=== PATIENT | male | born 1990 | race African-American/Black ===

== ENCOUNTER 2016-11-08 19:14 | Inpatient (IN) | payer OTHER ==
[2016-11-08 20:10] VITALS: BMI 22.3
--- NOTE | 2016-11-08 21:08 | HP ---
CIWA Score - CIWA Score Nausea/Vomitin-No Nausea/No Vomiting Muscle Tremors: 4-Moderate,w/Arms Extend Anxiety: 4-Mod. Anxious/Guarded Agitation: 4-Moderately Restless Paroxysmal Sweats: 1-Minimal Palms Moist Orientation: 0-Oriented Tacttile Disturbances: 0-None Auditory Disturbances: 0-None Visual Disturbances: 0-None Headache: 2-Mild CIWA-Ar Total Score: 15 Admission ROS BHS - HPI Chief Complaint: C/O WITHDRAWAL SX'S. SEEKING DETOX TXMENT Allergies/Adverse Reactions: Allergies Allergy/AdvReac Type Severity Reaction Status Date / Time No Known Allergies Allergy Verified 11/08/16 21:02 History of Present Illness: 26 Y.O. MALE WITH ALCOHOLISM AND BENZO DEPENDENCE ADMITTED TO DETOX. THIS IS CLIENT FIRST TIME IN DETOX UTOX NEGATIVE FOR BENZO ( XANAX). WILL ADMIT FOR ALCOHOLISM. Exam Limitations: No Limitations - Ebola screening Have you traveled outside of the country in the last 21 days: No (N) Have you had contact with anyone from an Ebola affected area: No Have you been sick,other than usual withdrawal symptoms: No Do you have a fever: No - Review of Systems Constitutional: Chills, Loss of Appetite, Night Sweats, Changes in sleep EENT: reports: No Symptoms Reported Respiratory: reports: No Symptoms reported Cardiac: reports: No Symptoms Reported GI: reports: Poor Appetite : reports: No Symptoms Reported Musculoskeletal: reports: Muscle Pain (SHOULDERS) Integumentary: reports: No Symptoms Reported Neuro: reports: No Symptoms reported Endocrine: reports: No Symptoms Reported Hematology: reports: No Symptoms Reported Psychiatric: reports: Anxious, Depressed, other Other Systems: Reviewed and Negative Patient History - Patient Medical History Hx Anemia: No Hx Asthma: No Hx Chronic Obstructive Pulmonary Disease (COPD): No Hx Cancer: No Hx Cardiac Disorders: No Hx Congestive Heart Failure: No Hx Hypertension: No Hx Hypercholesterolemia: Yes (NO MGMT) Hx Pacemaker: No HX Cerebrovascular Accident: No Hx Seizures: No Hx Dementia: No Hx Diabetes: No Hx Gastrointestinal Disorders: No Hx Liver Disease: No Hx Genitourinary Disorders: No Hx Sexually Transmitted Disorders: No Hx Renal Disease (ESRD): No Hx Thyroid Disease: No Hx Human Immunodeficiency Virus (HIV): No Hx Hepatitis C: No Hx Depression: Yes (NO MGMT) Hx Suicide Attempt: No Hx Bipolar Disorder: No Hx Schizophrenia: No Other Medical History: SCHIZOAFFECTIVE - Patient Surgical History Past Surgical History: No - PPD History Previous Implant?: Yes Documented Results: Negative w/o proof Implanted On Prior [facility] Admission?: No PPD to be Administered?: Yes - Smoking Cessation Smoking history: Current every day smoker Have you smoked in the past 12 months: Yes Aproximately how many cigarettes per day: 7 Cigars Per Day: 0 Hx Chewing Tobacco Use: No Initiated information on smoking cessation: Yes 'Breaking Loose' booklet given: 11/08/16 - Substance & Tx. History Hx Alcohol Use: Yes Hx Substance Use: Yes Substance Use Type: Tranquilizers (XANAX) Hx Substance Use Treatment: No - Substances Abused BEER Route: Oral Frequency: 3-6 times per week Amount used: 7- 24 OZ Age of first use: 17 Date of Last Use: 11/08/16 XANAX Frequency: 3-6 times per week Amount used: 6MG Age of first use: 20 Date of Last Use: 11/01/16 Family Disease History - Family Disease History Family History: Denies Admission Physical Exam [facility] - Vital Signs Vital Signs: Vital Signs - 24 hr 11/08/16 20:07 Temperature 96.3 F L Pulse Rate 79 Respiratory 18 Rate Blood Pressure 145/79 - Physical General Appearance: Yes: Appropriately Dressed, Tremorous, Anxious HEENTM: Yes: EOMI, Normocephalic, Normal Voice, ZAHIRA, Pharynx Normal Respiratory: Yes: Chest Non-Tender, Lungs Clear, Normal Breath Sounds, No Respiratory Distress, No Accessory Muscle Use Neck: Yes: No masses,lesions,Nodules, Supple, Trachea in good position Breast: Yes: Breast Exam Deferred Cardiology: Yes: Regular Rhythm, Regular Rate, S1, S2 Abdominal: Yes: Normal Bowel Sounds, Non Tender, Soft Genitourinary: Yes: Within Normal Limits Back: Yes: Normal Inspection Musculoskeletal: Yes: full range of Motion, Gait Steady Extremities: Yes: Normal Range of Motion, Non-Tender, Tremors Neurological: Yes: Fully Oriented, Alert, Motor Strength 5/5 Integumentary: Yes: Normal Color, Warm, Moist Lymphatic: Yes: Within Normal Limits - Diagnostic (1) Alcohol dependence with uncomplicated withdrawal Current Visit: Yes Status: Chronic (2) Nicotine dependence Current Visit: Yes Status: Chronic Qualifiers: Nicotine product type: cigarettes Substance use status: uncomplicated Qualified Code(s): F17.210 - Nicotine dependence, cigarettes, uncomplicated Cleared for Admission [facility] - Detox or Rehab [facility] Level of Care: Medically Managed Detox Regimen/Protocol: Librium [facility] Breath Alcohol Content Breath Alcohol Content: 0.026 Urine Drug Screen - Results Drug Screen Negative: Yes
[2016-11-08] MEDS ORDERED: MAGNESIUM HYDROX 2400MG/30ML ORAL SUSPENSION 30 ML CUP PO PRN (21:22)
[2016-11-08] MEDS ORDERED: MENTHOL/PHENOL 1 EACH UD MM PRN (21:22)
[2016-11-08] MEDS ORDERED: guaiFENesin/D-METHORPHAN HB 10 ML UNIT-DOSE CUPS PO PRN (21:22)
[2016-11-08] MEDS ORDERED: MAGNESIUM CITRATE 300 ML BOTTLE PO PRN (21:22)
[2016-11-08] MEDS ORDERED: LOPERAMIDE HCL 2 MG CAPSULE PO PRN (21:22)
[2016-11-08] MEDS ORDERED: chlordiazePOXIDE HCL 25 MG CAPSULE PO PRN (21:22)
[2016-11-08] MEDS ORDERED: hydrOXYzine PAMOATE 50 MG CAPSULE (FP) PO PRN (21:22)
[2016-11-08] MEDS ORDERED: NICOTINE POLACRILEX 2 MG GUM BC PRN (21:22)
[2016-11-08] MEDS ORDERED: P-EPHED 60MG/TRIPROLIDI 2.5MG TABLET PO PRN (21:22)
[2016-11-08] MEDS: chlordiazePOXIDE HCL 25 MG CAPSULE PO SCH (22:37)
[2016-11-08] MEDS: THIAMINE HCL 100 MG TABLET (FP) PO SCH (22:37)
[2016-11-08] MEDS: NICOTINE 14 MG/24 HOURS TOPICAL PATCH TD SCH (22:37)
[2016-11-08] MEDS: diphenhydrAMINE HCL 50 MG CAPSULE PO PRN (22:38)
[2016-11-09] MEDS: chlordiazePOXIDE HCL 25 MG CAPSULE PO SCH ×4 (05:59→22:41)
[2016-11-09] MEDS: ACETAMINOPHEN 325 MG TABLET (FP) PO PRN (06:00)
[2016-11-09 10:16] LABS: MCHC 33.9 g/dl (32.0-35.9); MEAN CELL VOLUME 94.5 fl (80-96); MEAN PLT VOLUME 7.6 fl (7.5-11.1); PLATELET COUNT 250 K/MM3 (134-434); RDW 12.3 % (11.9-15.9); WHITE BLOOD COUNT 5.9 K/mm3 (4.0-10.0)
[2016-11-09] MEDS: NICOTINE 14 MG/24 HOURS TOPICAL PATCH TD SCH (10:26)
[2016-11-09] MEDS: PRENATAL VITAMINS W/ FOLIC ACID TABLET (FP) PO SCH (10:26)
[2016-11-09 10:32] LABS: ALBUMIN 4.2 g/dl (3.4-5.0); ALK PHOS 62 U/L (45-117); ANION GAP 10 (8-16); BILIRUBIN,TOTAL 0.7 mg/dL (0.2-1.0); CALCIUM 9.5 mg/dL (8.5-10.1); CO2 28 mmol/L (21-32); GLUCOSE,RANDOM 81 mg/dL (74-106); SGOT/AST 20 U/L (15-37); SGPT/ALT 43 U/L (12-78)
--- NOTE | 2016-11-09 13:57 | PN ---
S CIWA - CIWA Score Nausea/Vomitin-Mild Nausea/No Vomiting Muscle Tremors: 4-Moderate,w/Arms Extend Anxiety: 4-Mod. Anxious/Guarded Agitation: 3 Paroxysmal Sweats: No Perspiration Orientation: 0-Oriented Tacttile Disturbances: 0-None Auditory Disturbances: 0-None Visual Disturbances: 0-None Headache: 3-Moderate CIWA-Ar Total Score: 15 BHS Progress Note (SOAP) Subjective: Anxiety, sweating, tremor, interrupted sleep Objective: 11/09/16 13:55 Last Vital Signs Temp Pulse Resp BP Pulse Ox 96.6 F L 65 18 110/68 11/09/16 09:20 11/09/16 09:20 11/09/16 09:20 11/09/16 09:20 Laboratory Tests 11/09/16 11/09/16 11/09/16 07:50 07:50 07:50 WBC 5.9 RBC 4.59 Hgb 14.7 Hct 43.4 MCV 94.5 MCHC 33.9 RDW 12.3 Plt Count 250 MPV 7.6 Sodium 142 Potassium 4.0 Chloride 104 Carbon Dioxide 28 Anion Gap 10 BUN 18 Creatinine 1.0 Creat Clearance w eGFR > 60 Random Glucose 81 Calcium 9.5 Total Bilirubin 0.7 AST 20 ALT 43 Alkaline Phosphatase 62 Total Protein 7.0 Albumin 4.2 RPR Titer Nonreactive Labs noted Assessment: 11/09/16 13:57 Withdrawal symptoms Plan: Continue detox
[2016-11-09] MEDS: IBUPROFEN 400 MG TABLET (FP) PO PRN (16:30)
[2016-11-09] MEDS: diphenhydrAMINE HCL 50 MG CAPSULE PO PRN (22:41)
[2016-11-09] MEDS: THIAMINE HCL 100 MG TABLET (FP) PO SCH (22:41)
[2016-11-10] MEDS: diphenhydrAMINE HCL 50 MG CAPSULE PO PRN ×3 (00:30→23:56)
[2016-11-10] MEDS: chlordiazePOXIDE HCL 25 MG CAPSULE PO SCH ×3 (06:05→17:38)
[2016-11-10] MEDS: MAG HYDROX/AL HYDROX/SIMETH 30 ML UNIT-DOSE CUP PO PRN (06:05)
--- NOTE | 2016-11-10 10:06 | PN ---
S CIWA - CIWA Score Nausea/Vomitin-No Nausea/No Vomiting Muscle Tremors: 4-Moderate,w/Arms Extend Anxiety: 3 Agitation: 3 Paroxysmal Sweats: 3 Orientation: 0-Oriented Tacttile Disturbances: 0-None Auditory Disturbances: 0-None Visual Disturbances: 0-None Headache: 0-None Present CIWA-Ar Total Score: 13 BHS Progress Note (SOAP) Subjective: Anxiety,tremors,interrupted sleep,restless,sweating Objective: 11/10/16 10:05 Vital Signs - 8 hr 11/10/16 11/10/16 11/10/16 03:25 06:19 10:03 Temperature 96.3 F L 96.4 F L Pulse Rate 56 L 66 Respiratory 18 16 18 Rate Blood Pressure 108/68 110/69 Laboratory Tests 11/09/16 11/09/16 11/09/16 07:50 07:50 07:50 WBC 5.9 RBC 4.59 Hgb 14.7 Hct 43.4 MCV 94.5 MCHC 33.9 RDW 12.3 Plt Count 250 MPV 7.6 Sodium 142 Potassium 4.0 Chloride 104 Carbon Dioxide 28 Anion Gap 10 BUN 18 Creatinine 1.0 Creat Clearance w eGFR > 60 Random Glucose 81 Calcium 9.5 Total Bilirubin 0.7 AST 20 ALT 43 Alkaline Phosphatase 62 Total Protein 7.0 Albumin 4.2 RPR Titer Nonreactive labs noted Assessment: 11/10/16 10:05 withdrawal sx. Plan: continue detox
[2016-11-10] MEDS: PRENATAL VITAMINS W/ FOLIC ACID TABLET (FP) PO SCH (10:25)
[2016-11-10] MEDS: NICOTINE 14 MG/24 HOURS TOPICAL PATCH TD SCH (10:26)
--- NOTE | 2016-11-10 12:11 | EKG ---
Test Reason : Blood Pressure : / mmHG Vent. Rate : 068 BPM Atrial Rate : 068 BPM P-R Int : 156 ms QRS Dur : 086 ms QT Int : 378 ms P-R-T Axes : 053 072 045 degrees QTc Int : 401 ms NORMAL SINUS RHYTHM NORMAL ECG WHEN COMPARED WITH ECG OF 08-NOV-2016 23:42, CRITERIA FOR SEPTAL INFARCT ARE NO LONGER PRESENT Confirmed by DARCY HERNANDEZ MD ([id number]) on 11/10/2016 12:10:44 PM Referred By: Confirmed By:DARCY HERNANDEZ MD
--- NOTE | 2016-11-10 14:33 | CONSULT ---
[facility] Psychiatric Consult - Data Date of interview: 11/10/16 Admission source: [facility] Identifying data: First admission to [facility] for this 26 y/o AA male seeking detox treatment on for alcohol and benzodiazepine (xanax) dependence.Patient is single without children,homeless,unemployed and he is reportedly deprived of any source of income. Substance Abuse History: - Smoking Cessation. Smoking history: Current every day smoker. Have you smoked in the past 12 months: Yes. Aproximately how many cigarettes per day: 7. Cigars Per Day: 0. Hx Chewing Tobacco Use: No. Initiated information on smoking cessation: Yes. 'Breaking Loose' booklet given : 11/08/16. - Substance & Tx. History. Hx Alcohol Use: Yes. Hx Substance Use : Yes. Substance Use Type: Tranquilizers (XANAX). Hx Substance Use Treatment: No. - Substances Abused. BEER. Route: Oral. Frequency: 3-6 times per week. Amount used: 7- 24 OZ. Age of first use: 17. Date of Last Use: . XANAX. Frequency: 3-6 times per week. Amount used: 6MG. Age of first use: 20. Date of Last Use: 11/01/16. Confirmed by the patient in my interview. Medical History: Hypercholesterolemia. Psychiatric History: Patient denies history of psychiatric hospitalizations.Diagnosed with PTSD and Schizoaffective Disorder.Medications : zoloft and buspar (doses not remembered).Mr Sanders declares that he has NOT taken these medications for THREE consecutive years.He is currently back in OPD care at the [facility] in [facility].Patient requests to resume zoloft and buspar in this current course of treatment.No reported history of suicide attempts. Physical/Sexual Abuse/Trauma History: Patient denies history of sexual abuse. Additional Comment: Drug Screen Negative: Yes Mental Status Exam - Mental Status Exam Alert and Oriented to: Time, Place, Person Cognitive Function: Good Patient Appearance: Well Groomed Mood: Hopeful, Euthymic Affect: Appropriate, Normal Range Patient Behavior: Fatigued, Appropriate, Cooperative Speech Pattern: Clear, Appropriate Voice Loudness: Normal Thought Process: Goal Oriented Thought Disorder: Not Present Hallucinations: Denies Suicidal Ideation: Denies Homicidal Ideation: Denies Insight/Judgement: Poor Sleep: Fair Appetite: Good Muscle strength/Tone: Normal Gait/Station: Normal Psychiatric Findings - Problem List ([place] 1, 2,3) (1) Alcohol dependence with uncomplicated withdrawal Current Visit: Yes Status: Acute (2) Nicotine dependence Current Visit: Yes Status: Acute Qualifiers: Nicotine product type: cigarettes Substance use status: uncomplicated Qualified Code(s): F17.210 - Nicotine dependence, cigarettes, uncomplicated (3) Substance induced mood disorder Current Visit: Yes Status: Acute - Initial Treatment Plan Initial Treatment Plan: Psychoeducation.Detoxification.Medications : zoloft 50 mg po daily + buspar 5 mg po bid.Side effects/benefits are discussed with the patient.He agrees with this plan.Observation.
--- NOTE | 2016-11-10 16:21 | EKG ---
Test Reason : Blood Pressure : / mmHG Vent. Rate : 073 BPM Atrial Rate : 073 BPM P-R Int : 154 ms QRS Dur : 088 ms QT Int : 372 ms P-R-T Axes : 067 065 053 degrees QTc Int : 409 ms NORMAL SINUS RHYTHM WITH SINUS ARRHYTHMIA POSSIBLE LEFT ATRIAL ENLARGEMENT SEPTAL INFARCT , AGE UNDETERMINED ABNORMAL ECG NO PREVIOUS ECGS AVAILABLE Confirmed by TEGAN OLSEN MD ([id number]) on 11/10/2016 4:21:28 PM Referred By: Confirmed By:TEGAN OLSEN MD
[2016-11-10] MEDS: ACETAMINOPHEN 325 MG TABLET (FP) PO PRN ×2 (17:40→23:12)
[2016-11-10 20:10] LABS: URINE APPEARANCE SLCLOUDY; URINE BILIRUBIN NEGATIVE (NEGATIVE); URINE BLOOD NEGATIVE (NEGATIVE); URINE COLOR YELLOW; URINE GLUCOSE (UA) NEGATIVE (NEGATIVE); URINE KETONE NEGATIVE (NEGATIVE); URINE LEUK ESTERASE NEGATIVE (NEGATIVE); URINE NITRITE NEGATIVE (NEGATIVE); URINE PROTEIN NEGATIVE (NEGATIVE); URINE UROBILINOGEN NEGATIVE E.U./dl (0.2-1.0)
[2016-11-10] MEDS: THIAMINE HCL 100 MG TABLET (FP) PO SCH (22:18)
[2016-11-10] MEDS: busPIRone HCL 5 MG TABLET PO SCH (22:18)
[2016-11-10] MEDS: chlordiazePOXIDE 5 MG CAPSULE PO SCH (22:18)
[2016-11-11] MEDS: chlordiazePOXIDE 5 MG CAPSULE PO SCH ×3 (05:50→17:38)
[2016-11-11] MEDS: ACETAMINOPHEN 325 MG TABLET (FP) PO PRN ×2 (05:52→15:33)
[2016-11-11] MEDS: MAG HYDROX/AL HYDROX/SIMETH 30 ML UNIT-DOSE CUP PO PRN (05:53)
[2016-11-11] MEDS: busPIRone HCL 5 MG TABLET PO SCH ×2 (10:19→22:19)
[2016-11-11] MEDS: NICOTINE 14 MG/24 HOURS TOPICAL PATCH TD SCH (10:19)
[2016-11-11] MEDS: PRENATAL VITAMINS W/ FOLIC ACID TABLET (FP) PO SCH (10:19)
[2016-11-11] MEDS: SERTRALINE HCL 50 MG TABLET (FP) PO SCH (10:19)
--- NOTE | 2016-11-11 10:52 | PN ---
BHS Progress Note (SOAP) Subjective: SWEATS/CHILLS, ANXIETY,INTERMITTENT SLEEP Objective: 11/11/16 10:52 Vital Signs Temperature 97.1 F L 11/11/16 09:39 Pulse Rate 82 11/11/16 09:39 Respiratory Rate 18 11/11/16 09:39 Blood Pressure 119/71 11/11/16 09:39 O2 Sat by Pulse Oximetry (%) Assessment: 11/11/16 10:52 WITHDRAWAL SX Plan: CONTINUE DETOX
[2016-11-11] MEDS ORDERED: ONDANSETRON *ODT* 4 MG TABLET SL PRN (14:18)
[2016-11-11] MEDS: IBUPROFEN 400 MG TABLET (FP) PO PRN (17:40)
[2016-11-11] MEDS: chlordiazePOXIDE HCL 10 MG CAPSULE PO SCH (22:19)
[2016-11-11] MEDS: diphenhydrAMINE HCL 50 MG CAPSULE PO PRN (22:19)
[2016-11-11] MEDS: THIAMINE HCL 100 MG TABLET (FP) PO SCH (22:19)
[2016-11-11] MEDS ORDERED: CYCLOBENZAPRINE HCL 10 MG TABLET (FP) PO ONE (23:14)
--- NOTE | 2016-11-12 | PN ---
[facility] Progress Note (SOAP) Subjective: 9/10 chest throbbing pain radiating from left chest wall to lumbar spine x 1 hour Objective: 11/11/16 23:56 118/69, 69, ekg regular rhythm and rate no shortness of breath abd soft none tender +2 pulses x 4 extremities 11/11/16 23:58 Assessment: 11/11/16 23:57 chest pain 11/11/16 23:58 Plan: transfer to er for further evaluation return to [facility] for rehab once medically cleared ambulance was called information provided to er
[2016-11-12] MEDS: chlordiazePOXIDE HCL 10 MG CAPSULE PO SCH ×3 (06:24→17:51)
[2016-11-12] MEDS: SERTRALINE HCL 50 MG TABLET (FP) PO SCH (10:07)
[2016-11-12] MEDS: busPIRone HCL 5 MG TABLET PO SCH ×2 (10:07→22:16)
[2016-11-12] MEDS: PRENATAL VITAMINS W/ FOLIC ACID TABLET (FP) PO SCH (10:07)
[2016-11-12] MEDS: NICOTINE 14 MG/24 HOURS TOPICAL PATCH TD SCH (10:07)
--- NOTE | 2016-11-12 11:32 | PN ---
S Progress Note (SOAP) Subjective: LAST DAY OF LIBRIUM. REHAB REFERRAL. ALERT O X 3. NO C/O DISCOMFORT. Objective: 11/12/16 11:31 Vital Signs Temperature 96.4 F L 11/12/16 09:58 Pulse Rate 65 11/12/16 09:58 Respiratory Rate 18 11/12/16 09:58 Blood Pressure 111/76 11/12/16 09:58 O2 Sat by Pulse Oximetry (%) Assessment: 11/12/16 11:31 DECREASED WITHDRAWAL SX Plan: REFERRED TO REHAB. [facility].
[2016-11-12] MEDS: IBUPROFEN 400 MG TABLET (FP) PO PRN (17:50)
[2016-11-12] MEDS: THIAMINE HCL 100 MG TABLET (FP) PO SCH (22:16)
[2016-11-12] MEDS: diphenhydrAMINE HCL 50 MG CAPSULE PO PRN (22:18)
[2016-11-13] MEDS: diphenhydrAMINE HCL 50 MG CAPSULE PO PRN (01:23)
[2016-11-13 06:28] VITALS: PULSE 65
[2016-11-13 09:47] VITALS: BP 109/65; TEMP 97.2
[2016-11-13] MEDS: PRENATAL VITAMINS W/ FOLIC ACID TABLET (FP) PO SCH (10:29)
[2016-11-13] MEDS: SERTRALINE HCL 50 MG TABLET (FP) PO SCH (10:29)
[2016-11-13] MEDS: NICOTINE 14 MG/24 HOURS TOPICAL PATCH TD SCH (10:29)
[2016-11-13] MEDS: busPIRone HCL 5 MG TABLET PO SCH (10:29)
--- NOTE | 2016-11-13 12:35 | DS ---
[facility] Detox Discharge Summary Admission Date: 11/08/16 Discharge Date: 11/13/16 - History Present History: Alcohol Dependence Additional Comments: DETOX COMPLETED. ALERT O X 3. NAD. REFERRED TO REHAB TOO. Pertinent Past History: CHEST PAIN HYPERCHOLESTEROLEMIA--NOT ON MED DEPRESSION - Physical Exam Results Vital Signs: Vital Signs Temperature 97.2 F L 11/13/16 09:47 Pulse Rate 65 11/13/16 09:47 Respiratory Rate 18 11/13/16 09:47 Blood Pressure 109/65 11/13/16 09:47 O2 Sat by Pulse Oximetry (%) Pertinent Admission Physical Exam Findings: WITHDRAWAL SX - Treatment Hospital Course: Detox Protocol Followed, Detoxed Safely, Responded well, Discharged Condition Good, Rehab Referral Accepted Patient has Accepted a Rehab Referral to: [facility] - Medication Discharge Medications: Ambulatory Orders Buspirone HCl [Buspar -] 5 mg PO BID 11/12/16 Sertraline HCl [Zoloft -] 50 mg PO DAILY 11/12/16 - Diagnosis (1) Alcohol dependence with uncomplicated withdrawal Status: Acute (2) Nicotine dependence Status: Acute Qualifiers: Nicotine product type: cigarettes Substance use status: in withdrawal Qualified Code(s): F17.213 - Nicotine dependence, cigarettes, with withdrawal (3) Substance induced mood disorder Status: Acute (4) History of hypercholesterolemia Status: Suspected - AMA Did Patient Leave Against Medical Advice: No
--- NOTE | 2016-11-13 16:15 | EKG ---
Test Reason : Blood Pressure : / mmHG Vent. Rate : 071 BPM Atrial Rate : 071 BPM P-R Int : 150 ms QRS Dur : 090 ms QT Int : 358 ms P-R-T Axes : 081 051 051 degrees QTc Int : 389 ms NORMAL SINUS RHYTHM WHEN COMPARED WITH ECG OF 11-NOV-2016 23:07, NO SIGNIFICANT CHANGE WAS FOUND Confirmed by KIRSTEN GOODRICH MD ([id number]) on 11/13/2016 4:15:45 PM Referred By: Confirmed By:KIRSTEN GOODRICH MD
== END 2016-11-13 10:50 | disposition home or self-care (01) | DRG 775 ==
LOC: YASAS 19:14 → Y3N 21:15
PROVIDERS: ADMIT Internal Medicine; ATTEND Internal Medicine
PROC: HZ2ZZZZ Detoxification Services for Substance Abuse Treatment (ICD-10-PCS; principal; 2016-11-13)
DX: F10.230 Alcohol dependence with withdrawal, uncomplicated (principal); F17.213 Nicotine dependence, cigarettes, with withdrawal; F19.24 Other psychoactive substance dependence with psychoactive substance-induced mood disorder
CPT/HCPCS: 36415; 80053; 81003; 85027; 86593; 93005; 93010

== ENCOUNTER 2016-11-12 00:27 | Emergency (ER) | payer OTHER ==
[2016-11-12] MEDS ORDERED: ASPIRIN 81 MG CHEWABLE TABLETS PO ONE (00:36)
--- NOTE | 2016-11-12 00:36 | PDOC ---
History of Present Illness - General History Source: Patient Exam Limitations: No Limitations - History of Present Illness Initial Comments: 11/12/16 01:41 The patient is a 26 year old male with no significant past medical history who presents to the ED from [facility] for chest pain that began today. Patient was admitted in [facility] on Thursday for detox of alcohol and benzo. He presents today with left-sternal border chest pain that he describes as a pressure-like sensation radiating to the left arm and 7/10, in severity. Patient denies lightheadedness, diaphoresis, SOB, palpitations, jaw pain, nausea, and vomiting. The patient denies fever, chills, cough, abdominal pain, and diarrhea. Allergies: NKDA Social History: etoh abuse. Polysubstance abuse (benzo). Current smoker (7 cigarettes daily) Family History: hypertension Past Surgical History: None reported PCP: None reported <Antoinette Mchugh - Last Filed: 11/12/16 01:41> - General History Source: Patient <Malvin Zamudio - Last Filed: 11/12/16 03:42> - General Chief Complaint: Chest Pain Stated Complaint: CHEST PAIN Time Seen by Provider: 11/12/16 00:36 Past History <Antoinette Mchugh - Last Filed: 11/12/16 01:41> - Past Medical History Anemia: No Asthma: No Cancer: No Cardiac Disorders: No CVA: No COPD: No CHF: No Dementia: No Diabetes: No GI Disorders: No Disorders: No HTN: No Hypercholesterolemia: Yes (NO MGMT) Kidney Stones: No Liver Disease: No Suicide Attempt (Hx): No Seizures: No Thyroid Disease: No - Surgical History Abdominal Surgery: No Appendectomy: No Cardiac Surgery: No Cholecystectomy: No Lung Surgery: No Neurologic Surgery: No Orthopedic Surgery: No - Reproductive History Testicular Surgery: No - Psycho/Social/Smoking Cessation Hx Anxiety: No Suicidal Ideation: No Smoking History: Current every day smoker Have you smoked in the past 12 months: Yes Number of Cigarettes Smoked Daily: 7 Cigars Per Day: 0 'Breaking Loose' booklet given: 11/08/16 Hx Alcohol Use: Yes Drug/Substance Use Hx: Yes Substance Use Type: Tranquilizers (XANAX) Hx Substance Use Treatment: No <Malvin Zamudio - Last Filed: 11/12/16 03:42> - Past Medical History Allergies/Adverse Reactions: Allergies Allergy/AdvReac Type Severity Reaction Status Date / Time No Known Allergies Allergy Verified 11/12/16 00:34 Home Medications: Ambulatory Orders Buspirone HCl [Buspar -] 5 mg PO BID 11/12/16 Chlordiazepoxide [Librium -] 10 mg PO Q6HPO 11/12/16 Diphenhydramine [Benadryl -] 50 mg PO ONCE 11/12/16 Sertraline HCl [Zoloft -] 50 mg PO DAILY 11/12/16 Review of Systems - Review of Systems Able to Perform ROS?: Yes Comments:: 11/12/16 01:42 CONSTITUTIONAL: Absent: fever, no chills, no fatigue EYES: Absent: visual changes ENT: Absent: ear pain, no sore throat CARDIOVASCULAR: +left sternal border chest pain Absent: no palpitations RESPIRATORY: Absent: cough, no SOB GI: Absent: abdominal pain, no nausea, no vomiting, no constipation, no diarrhea GENITOURINARY: Absent: dysuria, no frequency, no hematuria MUSKULOSKELETAL: +left arm pain Absent: back pain SKIN: Absent: rash NEURO: Absent: headache <Antoinette Mchugh - Last Filed: 11/12/16 01:41> *Physical Exam - Vital Signs Last Vital Signs Temp Pulse Resp BP Pulse Ox 97.5 F L 69 18 111/62 99 11/12/16 00:36 11/12/16 00:55 11/12/16 00:55 11/12/16 00:55 11/12/16 00:55 - Physical Exam Comments: 11/12/16 01:42 GENERAL: Well-appearing, well-nourished. No apparent distress. HEENT: Normocephalic, atraumatic. PERRL, EOM intact. CARDIOVASCULAR: Normal S1, S2. Regular rate and rhythm. PULMONARY: Clear to auscultation bilaterally. ABDOMEN: Soft, non-distended, non-tender. EXTREMITIES: Normal ROM in all four extremities. No gross deformities. SKIN: Warm, dry. No rash NEUROLOGICAL: No focal neurological deficits. <Antoinette Mchugh - Last Filed: 11/12/16 01:41> Heart Score/ECG Review - ECG Impressions Comment:: 11/12/16 01:22 NSR @71bpm Pulmonary disease pattern Abnormal ECG <Antoinette Mchugh - Last Filed: 11/12/16 01:41> ED Treatment Course - LABORATORY CBC & Chemistry Diagram: 11/12/16 00:35 11/12/16 00:35 - ADDITIONAL ORDERS Additional order review: Laboratory Results 11/12/16 00:35 INR 0.90 11/12/16 00:35 RBC 4.10 MCV 92.9 MCHC 34.6 RDW 12.6 MPV 7.5 Neutrophils % 63.5 Lymphocytes % 30.8 Monocytes % 3.9 Eosinophils % 1.1 Basophils % 0.7 - Medications Given in the ED: ED Medications Discontinued Medications Generic Name Dose Route Start Last Admin Trade Name Jannie PRN Reason Stop Dose Admin Aspirin 162 mg 11/12/16 00:36 11/12/16 00:44 Asa - PO 11/12/16 00:37 Not Given ONCE ONE <Antoinette Mchugh - Last Filed: 11/12/16 01:41> - LABORATORY CBC & Chemistry Diagram: 11/12/16 00:35 11/12/16 00:35 <Malvin Zamudio - Last Filed: 11/12/16 03:42> Medical Decision Making - Medical Decision Making 11/12/16 03:28 Dr. Zamudio: The scribe's documentation has been prepared under my direction and personally reviewed by me in its entirery. I confirm that the note above accurately reflects all work, treatment, procedures, and medical decision making performed by me. Spoke to [employer] at [facility]. Cardiac enzymes x 2 are negative. Pt to return back to [facility]. Pt asked for Ortho referral as he says he has problems with his shoulders. <Malvin Zamudio - Last Filed: 11/12/16 03:42> *DC/Admit/Observation/Transfer - Attestations Scribe Attestion: 11/12/16 01:42 Documentation prepared by Antoinette Mchugh, acting as medical affairs manager for Malvin Zamudio MD <Antoinette Mchugh - Last Filed: 11/12/16 01:41> - Discharge Dispostion Admit: No <Malvin Zamudio - Last Filed: 11/12/16 03:42> Diagnosis at time of Disposition: Chest pain Qualifiers: Chest pain type: unspecified Qualified Code(s): R07.9 - Chest pain, unspecified - Discharge Dispostion Disposition: HOME Condition at time of disposition: Stable - Referrals Referrals: Tramaine Jimenez MD [Staff Physician] - STAFF,NOT ON [Primary Care Provider] - Jon Justin MD [Staff Physician] - John Kaur MD [Staff Physician] - Niko Bloom MD [Staff Physician] - - Patient Instructions Printed Discharge Instructions: DI for Chest Pain
[2016-11-12 00:38] VITALS: BMI 29.2
[2016-11-12 00:48] LABS: BASOPHIL 0.7 % (0-2.0); EOSINOPHIL 1.1 % (0-4.5); MCH 32.1 pg (25.7-33.7); MCHC 34.6 g/dl (32.0-35.9); MEAN CELL VOLUME 92.9 fl (80-96); MEAN PLT VOLUME 7.5 fl (7.5-11.1); NEUTROPHILS 63.5 % (42.8-82.8); PLATELET COUNT 208 K/MM3 (134-434); RDW 12.6 % (11.9-15.9)
[2016-11-12 01:13] LABS: INR 0.9 (0.82-1.09); PROTHROMBIN TIME (PATIENT) 9.9 SEC (9.98-11.88)
[2016-11-12 01:22] LABS: ALBUMIN 3.7 g/dl (3.4-5.0); ANION GAP 9 (8-16); BILIRUBIN,TOTAL 0.3 mg/dL (0.2-1.0); CALCIUM 8.7 mg/dL (8.5-10.1); CO2 27 mmol/L (21-32); CREATININE 0.8 mg/dL (0.7-1.3); GLUCOSE,RANDOM 92 mg/dL (74-106); SGOT/AST 198 U/L (15-37); SGPT/ALT 305 U/L (12-78); TOT PROT 6.4 g/dl (6.4-8.2)
[2016-11-12 01:25] LABS: ALK PHOS 82 U/L (45-117); TROPONIN I < 0.02 ng/ml (0.00-0.05)
[2016-11-12] MEDS ORDERED: METHOCARBAMOL 500 MG TABLET PO ONE (02:11)
[2016-11-12] MEDS ORDERED: METHOCARBAMOL 500 MG TABLET ONE (02:19)
[2016-11-12 03:04] VITALS: BP 107/63; PULSE 60; TEMP 97.3
[2016-11-12] MEDS ORDERED: traMADol HCL 50 MG TABLET PO ONE (03:06)
[2016-11-12] MEDS ORDERED: traMADol HCL 50 MG TABLET ONE (03:08)
[2016-11-12 03:37] LABS: TROPONIN I < 0.02 ng/ml (0.00-0.05)
--- NOTE | 2016-11-12 12:23 | EKG ---
Test Reason : Blood Pressure : / mmHG Vent. Rate : 069 BPM Atrial Rate : 069 BPM P-R Int : 146 ms QRS Dur : 096 ms QT Int : 358 ms P-R-T Axes : 071 069 054 degrees QTc Int : 383 ms NORMAL SINUS RHYTHM NORMAL ECG WHEN COMPARED WITH ECG OF 09-NOV-2016 08:43, NO SIGNIFICANT CHANGE WAS FOUND Confirmed by LUCIEN PANCHAL MD ([id number]) on 11/12/2016 12:23:30 PM Referred By: Confirmed By:LUCIEN PANCHAL MD
== END 2016-11-12 03:48 | disposition home or self-care (01) ==
LOC: JER 00:27
DX: R07.9 Chest pain, unspecified (principal); F13.10 Sedative, hypnotic or anxiolytic abuse, uncomplicated; F10.10 Alcohol abuse, uncomplicated; F17.210 Nicotine dependence, cigarettes, uncomplicated
CPT/HCPCS: 36415; 71010-TC; 80053; 82550; 83735; 84484; 85025; 85610; 93005; 93010; 99284-25

== ENCOUNTER 2017-06-10 15:15 | Inpatient (IN) | payer OTHER ==
[2017-06-10 18:12] VITALS: BMI 23.7
--- NOTE | 2017-06-10 21:15 | HP ---
CIWA Score - CIWA Score Nausea/Vomitin Muscle Tremors: 4-Moderate,w/Arms Extend Anxiety: 4-Mod. Anxious/Guarded Agitation: 4-Moderately Restless Paroxysmal Sweats: 3 Orientation: 0-Oriented Tacttile Disturbances: 2-Mild Itch/Numbness/Burn Auditory Disturbances: 0-None Visual Disturbances: 0-None Headache: 0-None Present CIWA-Ar Total Score: 19 Admission ROS BHS - HPI Chief Complaint: SEEKING DETOX FOR ALCOHOLISM AND PERCOCETS Allergies/Adverse Reactions: Allergies Allergy/AdvReac Type Severity Reaction Status Date / Time No Known Allergies Allergy Verified 11/12/16 00:34 History of Present Illness: 26 Y.O. MALE ADMITTED FOR ALCOHOLISM. HE REPORTS USE OF PERCOCETS BUT UDS NEGATIVE FOR ALL DRUGS. HE IS KNOWN TO [place]. DENIES DETOX TXMENT IN PAST 30 DAYS Exam Limitations: No Limitations - Ebola screening Have you traveled outside of the country in the last 21 days: No Have you had contact with anyone from an Ebola affected area: No Have you been sick,other than usual withdrawal symptoms: No Do you have a fever: No - Review of Systems Constitutional: Loss of Appetite, Malaise, Changes in sleep EENT: reports: No Symptoms Reported Respiratory: reports: No Symptoms reported Cardiac: reports: No Symptoms Reported GI: reports: Poor Appetite : reports: No Symptoms Reported Musculoskeletal: reports: Back Pain Integumentary: reports: No Symptoms Reported Neuro: reports: Seizure (ALCOHOL RELATED. LAST 6 WEEKS AGO) Endocrine: reports: No Symptoms Reported Hematology: reports: No Symptoms Reported Psychiatric: reports: Anxious Other Systems: Reviewed and Negative Patient History - Patient Medical History Hx Anemia: No Hx Asthma: No Hx Chronic Obstructive Pulmonary Disease (COPD): No Hx Cancer: No Hx Cardiac Disorders: No Hx Congestive Heart Failure: No Hx Hypertension: No Hx Hypercholesterolemia: Yes (NO MGMT) Hx Pacemaker: No HX Cerebrovascular Accident: No Hx Seizures: Yes (ALCOHOL R/T LAST 6 WEEKS AGO) Hx Dementia: No Hx Diabetes: No Hx Gastrointestinal Disorders: No Hx Liver Disease: No Hx Genitourinary Disorders: No Hx Sexually Transmitted Disorders: No Hx Renal Disease (ESRD): No Hx Thyroid Disease: No Hx Human Immunodeficiency Virus (HIV): No Hx Hepatitis C: No Hx Depression: No Hx Suicide Attempt: No Hx Bipolar Disorder: No Hx Schizophrenia: No Other Medical History: DENIES - Patient Surgical History Past Surgical History: No Hx Neurologic Surgery: No Hx Cataract Extraction: No Hx Cardiac Surgery: No Hx Lung Surgery: No Hx Breast Surgery: No Hx Breast Biopsy: No Hx Abdominal Surgery: No Hx Appendectomy: No Hx Cholecystectomy: No Hx Genitourinary Surgery: No Hx Section: No Hx Orthopedic Surgery: No Anesthesia Reaction: No - PPD History Previous Implant?: Yes Documented Results: Negative w/proof Implanted On Prior [facility] Admission?: Yes Date: 11/10/16 Results: 0 MM PPD to be Administered?: No - Smoking Cessation Smoking history: Current every day smoker Have you smoked in the past 12 months: Yes Aproximately how many cigarettes per day: 10 Cigars Per Day: 0 Hx Chewing Tobacco Use: No Initiated information on smoking cessation: Yes - Substance & Tx. History Hx Alcohol Use: Yes Hx Substance Use: Yes Substance Use Type: Alcohol, Opiates (PERCOCETS NEGATIVE UDS) Hx Substance Use Treatment: Yes ([facility]) - Substances Abused Alcohol Route: Oral Frequency: Daily Amount used: 10-20 beers Age of first use: 17 Date of Last Use: 06/10/17 Family Disease History - Family Disease History Family History: Denies Admission Physical Exam S - Vital Signs Vital Signs: Vital Signs - 24 hr 06/10/17 18:09 Temperature 97.5 F L Pulse Rate 97 H Respiratory 18 Rate Blood Pressure 121/77 - Physical General Appearance: Yes: Appropriately Dressed, Mild Distress, Intoxicated, Tremorous, Irritable, Anxious HEENTM: Yes: EOMI, Normocephalic, ZAHIRA, Pharynx Normal Respiratory: Yes: Chest Non-Tender, Lungs Clear, Normal Breath Sounds, No Respiratory Distress, No Accessory Muscle Use Neck: Yes: No masses,lesions,Nodules, Supple, Trachea in good position Breast: Yes: Breast Exam Deferred Cardiology: Yes: Regular Rhythm, Regular Rate, S1, S2 Abdominal: Yes: Normal Bowel Sounds, Non Tender, Flat, Soft Genitourinary: Yes: Within Normal Limits Back: Yes: Normal Inspection Musculoskeletal: Yes: full range of Motion, Gait Steady Extremities: Yes: Normal Capillary Refill, Normal Range of Motion, Non-Tender, Tremors Neurological: Yes: fire investigation manager II-XII NML intact, Fully Oriented, Alert, Motor Strength 5/5, Depressed Affect, Other (FLAT AFFECT) Integumentary: Yes: Normal Color, Warm Lymphatic: Yes: Within Normal Limits - Diagnostic (1) Alcohol dependence with uncomplicated withdrawal Current Visit: Yes Status: Chronic (2) Nicotine dependence Current Visit: Yes Status: Chronic Qualifiers: Nicotine product type: cigarettes Substance use status: uncomplicated Qualified Code(s): F17.210 - Nicotine dependence, cigarettes, uncomplicated Cleared for Admission [facility] - Detox or Rehab [facility] Level of Care: Medically Managed Detox Regimen/Protocol: Librium S Breath Alcohol Content Breath Alcohol Content: 0.070 Urine Drug Screen - Results Drug Screen Negative: Yes
[2017-06-10] MEDS ORDERED: chlordiazePOXIDE HCL 25 MG CAPSULE PO PRN (21:40)
[2017-06-10] MEDS ORDERED: MAGNESIUM HYDROX 2400MG/30ML ORAL SUSPENSION 30 ML CUP PO PRN (21:40)
[2017-06-10] MEDS ORDERED: IBUPROFEN 400 MG TABLET (FP) PO PRN (21:40)
[2017-06-10] MEDS ORDERED: LOPERAMIDE HCL 2 MG CAPSULE PO PRN (21:40)
[2017-06-10] MEDS ORDERED: NICOTINE POLACRILEX 2 MG GUM BUC PRN (21:40)
[2017-06-10] MEDS ORDERED: MAGNESIUM CITRATE 300 ML BOTTLE PO PRN (21:40)
[2017-06-10] MEDS ORDERED: P-EPHED 60MG/TRIPROLIDI 2.5MG TABLET PO PRN (21:40)
[2017-06-10] MEDS ORDERED: MENTHOL/PHENOL 1 EACH UD MM PRN (21:40)
[2017-06-10] MEDS ORDERED: guaiFENesin/D-METHORPHAN HB 10 ML UNIT-DOSE CUPS PO PRN (21:40)
[2017-06-10] MEDS: THIAMINE HCL 100 MG TABLET (FP) PO SCH (23:38)
[2017-06-10] MEDS: chlordiazePOXIDE HCL 25 MG CAPSULE PO SCH (23:38)
[2017-06-10] MEDS: diphenhydrAMINE HCL 50 MG CAPSULE PO PRN (23:38)
[2017-06-10] MEDS: NICOTINE 21 MG/24 HOURS TOPICAL PATCH TD SCH (23:42)
[2017-06-11 01:37] LABS: URINE APPEARANCE CLEAR; URINE BILIRUBIN NEGATIVE (NEGATIVE); URINE BLOOD NEGATIVE (NEGATIVE); URINE COLOR YELLOW; URINE GLUCOSE (UA) NEGATIVE (NEGATIVE); URINE KETONE NEGATIVE (NEGATIVE); URINE LEUK ESTERASE NEGATIVE (NEGATIVE); URINE NITRITE NEGATIVE (NEGATIVE); URINE PROTEIN NEGATIVE (NEGATIVE)
[2017-06-11] MEDS: chlordiazePOXIDE HCL 25 MG CAPSULE PO SCH ×4 (06:03→22:30)
--- NOTE | 2017-06-11 08:35 | CONSULT ---
[facility] Psychiatric Consult - Data Date of interview: 06/11/17 Admission source: [facility] Identifying data: This is 26 years old male with no psychiatric hospitalization history intoxicated with: Alcohol and Nicotine Substance Abuse History: Smoking Cessation. Smoking history: Current every day smoker. Have you smoked in the past 12 months: Yes. Aproximately how many cigarettes per day: 10. Cigars Per Day: 0. Hx Chewing Tobacco Use: No. Initiated information on smoking cessation: Yes. - Substance & Tx. History. Hx Alcohol Use: Yes. Hx Substance Use: Yes. Substance Use Type: Alcohol, Opiates (PERCOCETS NEGATIVE UDS). Hx Substance Use Treatment: Yes ([facility]). - Substances Abused. Alcohol. Route: Oral. Frequency: Daily. Amount used: 10-20 beers. Age of first use: 17. Date of Last Use: 06/10/17 Medical History: Chest pain history, Hypercholesterolemia Psychiatric History: Patient denies past psychiatric history Physical/Sexual Abuse/Trauma History: Denies Additional Comment: Observation. Detox Unit Care Protocol Mental Status Exam - Mental Status Exam Alert and Oriented to: Person Cognitive Function: Fair Patient Appearance: Unkempt Mood: Sad Affect: Flat Patient Behavior: Fatigued Speech Pattern: Delayed Voice Loudness: Mildly Soft/Quiet Thought Process: Circumstantial Thought Disorder: Being Controlled Hallucinations: Denies Suicidal Ideation: Denies Homicidal Ideation: Denies Insight/Judgement: Fair Sleep: Difficulty falling asleep Appetite: Fair Muscle strength/Tone: Mild Hypotonicity Gait/Station: Shuffling Additional Comments: Observation. Detox Unit Care Protocol Psychiatric Findings - Problem List ([place] 1, 2,3) (1) Alcohol dependence with uncomplicated withdrawal Current Visit: Yes Status: Chronic (2) Nicotine dependence Current Visit: Yes Status: Chronic Qualifiers: Nicotine product type: cigarettes Substance use status: uncomplicated Qualified Code(s): F17.210 - Nicotine dependence, cigarettes, uncomplicated (3) Substance induced mood disorder Current Visit: No Status: Suspected - Initial Treatment Plan Initial Treatment Plan: Observation. Detox Unit Care Protocol
[2017-06-11 09:51] LABS: ALBUMIN 3.6 g/dl (3.4-5.0); ANION GAP 5 (8-16); BILIRUBIN,TOTAL 0.4 mg/dL (0.2-1.0); CALCIUM 8.6 mg/dL (8.5-10.1); CO2 29 mmol/L (21-32); CREATININE 0.8 mg/dL (0.7-1.3); GLUCOSE,RANDOM 91 mg/dL (74-106); SGOT/AST 13 U/L (15-37); SGPT/ALT 25 U/L (12-78); TOT PROT 6.4 g/dl (6.4-8.2)
[2017-06-11 09:52] LABS: ALK PHOS 73 U/L (45-117)
[2017-06-11 09:58] LABS: MEAN CELL VOLUME 93.9 fl (80-96); MEAN PLT VOLUME 7.4 fl (7.5-11.1); PLATELET COUNT 237 K/MM3 (134-434); RDW 12.5 % (11.9-15.9); WHITE BLOOD COUNT 5.1 K/mm3 (4.0-10.0)
[2017-06-11] MEDS: NICOTINE 21 MG/24 HOURS TOPICAL PATCH TD SCH (11:02)
[2017-06-11] MEDS: PRENATAL VITAMINS W/ FOLIC ACID TABLET (FP) PO SCH (11:03)
[2017-06-11] MEDS: hydrOXYzine PAMOATE 50 MG CAPSULE (FP) PO PRN (11:04)
--- NOTE | 2017-06-11 11:43 | PN ---
BHS CIWA - CIWA Score Nausea/Vomitin Muscle Tremors: 4-Moderate,w/Arms Extend Anxiety: 4-Mod. Anxious/Guarded Agitation: 4-Moderately Restless Paroxysmal Sweats: 3 Orientation: 0-Oriented Tacttile Disturbances: 1-Very Mild Itch/Numbness Auditory Disturbances: 0-None Visual Disturbances: 0-None Headache: 1-Very Mild CIWA-Ar Total Score: 20 BHS Progress Note (SOAP) Subjective: nausea, sweats, interrupted sleep, anxiety, tremors Objective: 06/11/17 11:42 Vital Signs - 24 hr 06/10/17 06/11/17 06/11/17 18:09 00:30 03:30 Temperature 97.5 F L Pulse Rate 97 H Respiratory 18 18 18 Rate Blood Pressure 121/77 06/11/17 06/11/17 06:56 10:00 Temperature 98.1 F 97.7 F Pulse Rate 83 67 Respiratory 18 18 Rate Blood Pressure 101/50 108/69 Laboratory Tests 06/10/17 06/11/17 06/11/17 23:54 07:50 07:50 WBC 5.1 RBC 4.20 Hgb 13.4 Hct 39.4 MCV 93.9 MCH 32.0 MCHC 34.0 RDW 12.5 Plt Count 237 MPV 7.4 L Sodium 140 Potassium 4.1 Chloride 106 Carbon Dioxide 29 Anion Gap 5 L BUN 15 D Creatinine 0.8 Creat Clearance w eGFR > 60 Random Glucose 91 Calcium 8.6 Total Bilirubin 0.4 D AST 13 L D ALT 25 D Alkaline Phosphatase 73 Total Protein 6.4 Albumin 3.6 Urine Color Yellow Urine Appearance Clear Urine pH 6.0 Ur Specific [place] 1.025 Urine Protein Negative Urine Glucose (UA) Negative Urine Ketones Negative Urine Blood Negative Urine Nitrite Negative Urine Bilirubin Negative Urine Urobilinogen 2.0 Assessment: 06/11/17 11:42 withdrawal sx Plan: cont detox
--- NOTE | 2017-06-11 13:23 | EKG ---
Test Reason : Blood Pressure : / mmHG Vent. Rate : 091 BPM Atrial Rate : 091 BPM P-R Int : 156 ms QRS Dur : 090 ms QT Int : 340 ms P-R-T Axes : 076 015 052 degrees QTc Int : 418 ms NORMAL SINUS RHYTHM POSSIBLE LEFT ATRIAL ENLARGEMENT BORDERLINE ECG WHEN COMPARED WITH ECG OF 12-NOV-2016 00:30, NO SIGNIFICANT CHANGE WAS FOUND Confirmed by KIRSTEN GOODRICH MD ([id number]) on 06/11/2017 1:23:07 PM Referred By: Marcos Lewis Confirmed By:KIRSTEN GOODRICH MD
[2017-06-11] MEDS: diphenhydrAMINE HCL 50 MG CAPSULE PO PRN (22:22)
[2017-06-11] MEDS: THIAMINE HCL 100 MG TABLET (FP) PO SCH (22:22)
[2017-06-12] MEDS: diphenhydrAMINE HCL 50 MG CAPSULE PO PRN (00:33)
[2017-06-12] MEDS: chlordiazePOXIDE HCL 25 MG CAPSULE PO SCH ×3 (05:31→17:45)
[2017-06-12] MEDS: NICOTINE 21 MG/24 HOURS TOPICAL PATCH TD SCH (10:50)
[2017-06-12] MEDS: PRENATAL VITAMINS W/ FOLIC ACID TABLET (FP) PO SCH (10:50)
--- NOTE | 2017-06-12 11:16 | PN ---
S CIWA - CIWA Score Nausea/Vomitin Muscle Tremors: 4-Moderate,w/Arms Extend Anxiety: 4-Mod. Anxious/Guarded Agitation: 4-Moderately Restless Paroxysmal Sweats: 3 Orientation: 0-Oriented Tacttile Disturbances: 1-Very Mild Itch/Numbness Auditory Disturbances: 0-None Visual Disturbances: 0-None Headache: 1-Very Mild CIWA-Ar Total Score: 20 BHS Progress Note (SOAP) Subjective: nausea, sweats, interrupted sleep, anxiety, tremors Objective: 06/12/17 11:15 Vital Signs - 24 hr 06/11/17 06/11/17 06/11/17 13:02 19:01 22:04 Temperature 97.4 F L 97.9 F 97.7 F Pulse Rate 87 72 72 Respiratory 18 16 16 Rate Blood Pressure 121/72 93/69 110/40 06/12/17 06/12/17 06/12/17 03:30 06:00 09:37 Temperature 97.5 F L Pulse Rate 77 64 Respiratory 18 16 18 Rate Blood Pressure 111/68 125/66 Laboratory Tests 06/10/17 06/11/17 06/11/17 23:54 07:50 07:50 WBC 5.1 RBC 4.20 Hgb 13.4 Hct 39.4 MCV 93.9 MCH 32.0 MCHC 34.0 RDW 12.5 Plt Count 237 MPV 7.4 L Sodium 140 Potassium 4.1 Chloride 106 Carbon Dioxide 29 Anion Gap 5 L BUN 15 D Creatinine 0.8 Creat Clearance w eGFR > 60 Random Glucose 91 Calcium 8.6 Total Bilirubin 0.4 D AST 13 L D ALT 25 D Alkaline Phosphatase 73 Total Protein 6.4 Albumin 3.6 Urine Color Yellow Urine Appearance Clear Urine pH 6.0 Ur Specific [place] 1.025 Urine Protein Negative Urine Glucose (UA) Negative Urine Ketones Negative Urine Blood Negative Urine Nitrite Negative Urine Bilirubin Negative Urine Urobilinogen 2.0 RPR Titer 06/11/17 07:50 WBC RBC Hgb Hct MCV MCH MCHC RDW Plt Count MPV Sodium Potassium Chloride Carbon Dioxide Anion Gap BUN Creatinine Creat Clearance w eGFR Random Glucose Calcium Total Bilirubin AST ALT Alkaline Phosphatase Total Protein Albumin Urine Color Urine Appearance Urine pH Ur Specific [place] Urine Protein Urine Glucose (UA) Urine Ketones Urine Blood Urine Nitrite Urine Bilirubin Urine Urobilinogen RPR Titer Nonreactive Assessment: 06/12/17 11:16 withdrawal sx Plan: cont detox, fluids, encourage ambualtion
[2017-06-12] MEDS: MAG HYDROX/AL HYDROX/SIMETH 30 ML UNIT-DOSE CUP PO PRN (14:50)
[2017-06-12] MEDS ORDERED: RANITIDINE HCL 150 MG TABLET (FP) PO ONE (20:41)
[2017-06-12] MEDS: THIAMINE HCL 100 MG TABLET (FP) PO SCH (22:58)
[2017-06-12] MEDS: chlordiazePOXIDE 5 MG CAPSULE PO SCH (22:59)
[2017-06-13] MEDS: chlordiazePOXIDE 5 MG CAPSULE PO SCH ×3 (05:59→18:01)
[2017-06-13] MEDS: PRENATAL VITAMINS W/ FOLIC ACID TABLET (FP) PO SCH (11:08)
[2017-06-13] MEDS: NICOTINE 21 MG/24 HOURS TOPICAL PATCH TD SCH (11:09)
--- NOTE | 2017-06-13 12:28 | PN ---
S Progress Note (SOAP) Subjective: Interrupted sleep, anxiety Objective: 06/13/17 12:28 Vital Signs - 8 hr 06/13/17 06/13/17 06:38 10:57 Temperature 97.3 F L 97.7 F Pulse Rate 89 81 Respiratory 18 20 Rate Blood Pressure 108/64 114/78 Laboratory Last Values WBC 5.1 K/mm3 (4.0-10.0) 06/11/17 07:50 RBC 4.20 M/mm3 (4.00-5.60) 06/11/17 07:50 Hgb 13.4 GM/dL (11.7-16.9) 06/11/17 07:50 Hct 39.4 % (35.4-49) 06/11/17 07:50 MCV 93.9 fl (80-96) 06/11/17 07:50 MCH 32.0 pg (25.7-33.7) 06/11/17 07:50 MCHC 34.0 g/dl (32.0-35.9) 06/11/17 07:50 RDW 12.5 % (11.9-15.9) 06/11/17 07:50 Plt Count 237 K/MM3 (134-434) 06/11/17 07:50 MPV 7.4 fl (7.5-11.1) L 06/11/17 07:50 Sodium 140 mmol/L (136-145) 06/11/17 07:50 Potassium 4.1 mmol/L (3.5-5.1) 06/11/17 07:50 Chloride 106 mmol/L (98-107) 06/11/17 07:50 Carbon Dioxide 29 mmol/L (21-32) 06/11/17 07:50 Anion Gap 5 (8-16) L 06/11/17 07:50 BUN 15 mg/dL (7-18) D 06/11/17 07:50 Creatinine 0.8 mg/dL (0.7-1.3) 06/11/17 07:50 Creat Clearance w eGFR > 60 (>60) 06/11/17 07:50 Random Glucose 91 mg/dL (74-106) 06/11/17 07:50 Calcium 8.6 mg/dL (8.5-10.1) 06/11/17 07:50 Total Bilirubin 0.4 mg/dL (0.2-1.0) D 06/11/17 07:50 AST 13 U/L (15-37) L D 06/11/17 07:50 ALT 25 U/L (12-78) D 06/11/17 07:50 Alkaline Phosphatase 73 U/L (45-117) 06/11/17 07:50 Total Protein 6.4 g/dl (6.4-8.2) 06/11/17 07:50 Albumin 3.6 g/dl (3.4-5.0) 06/11/17 07:50 Urine Color Yellow 06/10/17 23:54 Urine Appearance Clear 06/10/17 23:54 Urine pH 6.0 (5.0-8.0) 06/10/17 23:54 Ur Specific [place] 1.025 (1.005-1.025) 06/10/17 23:54 Urine Protein Negative (NEGATIVE) 06/10/17 23:54 Urine Glucose (UA) Negative (NEGATIVE) 06/10/17 23:54 Urine Ketones Negative (NEGATIVE) 06/10/17 23:54 Urine Blood Negative (NEGATIVE) 06/10/17 23:54 Urine Nitrite Negative (NEGATIVE) 06/10/17 23:54 Urine Bilirubin Negative (NEGATIVE) 06/10/17 23:54 Urine Urobilinogen 2.0 mg/dL (0.2-1.0) 06/10/17 23:54 RPR Titer Nonreactive (NONREACTIVE) 06/11/17 07:50 labs noted Assessment: 06/13/17 12:28 withdrawal sx Plan: continue detox
[2017-06-13] MEDS: hydrOXYzine PAMOATE 50 MG CAPSULE (FP) PO PRN (15:38)
[2017-06-13] MEDS: MAG HYDROX/AL HYDROX/SIMETH 30 ML UNIT-DOSE CUP PO PRN (20:04)
[2017-06-13] MEDS: THIAMINE HCL 100 MG TABLET (FP) PO SCH (22:28)
[2017-06-13] MEDS: chlordiazePOXIDE HCL 10 MG CAPSULE PO SCH (22:28)
[2017-06-13] MEDS: RANITIDINE HCL 150 MG TABLET (FP) PO SCH (22:28)
[2017-06-13] MEDS: diphenhydrAMINE HCL 50 MG CAPSULE PO PRN (22:29)
[2017-06-14] MEDS: diphenhydrAMINE HCL 50 MG CAPSULE PO PRN ×2 (01:21→22:44)
[2017-06-14] MEDS: ACETAMINOPHEN 325 MG TABLET (FP) PO PRN ×4 (01:52→23:15)
[2017-06-14] MEDS: chlordiazePOXIDE HCL 10 MG CAPSULE PO SCH ×3 (05:40→17:55)
[2017-06-14] MEDS: RANITIDINE HCL 150 MG TABLET (FP) PO SCH ×2 (10:53→23:13)
[2017-06-14] MEDS: PRENATAL VITAMINS W/ FOLIC ACID TABLET (FP) PO SCH (10:53)
[2017-06-14] MEDS: NICOTINE 21 MG/24 HOURS TOPICAL PATCH TD SCH (10:54)
--- NOTE | 2017-06-14 15:48 | PN ---
BHS Progress Note (SOAP) Subjective: Sweating,interrupted sleep Objective: 06/14/17 15:47 Vital Signs - 8 hr 06/14/17 06/14/17 10:18 13:43 Temperature 98.2 F 97.5 F L Pulse Rate 81 68 Respiratory 18 16 Rate Blood Pressure 118/74 115/57 Laboratory Tests 06/10/17 06/11/17 06/11/17 23:54 07:50 07:50 WBC 5.1 RBC 4.20 Hgb 13.4 Hct 39.4 MCV 93.9 MCH 32.0 MCHC 34.0 RDW 12.5 Plt Count 237 MPV 7.4 L Sodium 140 Potassium 4.1 Chloride 106 Carbon Dioxide 29 Anion Gap 5 L BUN 15 D Creatinine 0.8 Creat Clearance w eGFR > 60 Random Glucose 91 Calcium 8.6 Total Bilirubin 0.4 D AST 13 L D ALT 25 D Alkaline Phosphatase 73 Total Protein 6.4 Albumin 3.6 Urine Color Yellow Urine Appearance Clear Urine pH 6.0 Ur Specific [place] 1.025 Urine Protein Negative Urine Glucose (UA) Negative Urine Ketones Negative Urine Blood Negative Urine Nitrite Negative Urine Bilirubin Negative Urine Urobilinogen 2.0 RPR Titer 06/11/17 07:50 WBC RBC Hgb Hct MCV MCH MCHC RDW Plt Count MPV Sodium Potassium Chloride Carbon Dioxide Anion Gap BUN Creatinine Creat Clearance w eGFR Random Glucose Calcium Total Bilirubin AST ALT Alkaline Phosphatase Total Protein Albumin Urine Color Urine Appearance Urine pH Ur Specific [place] Urine Protein Urine Glucose (UA) Urine Ketones Urine Blood Urine Nitrite Urine Bilirubin Urine Urobilinogen RPR Titer Nonreactive labs noted Assessment: 06/14/17 15:47 Withdrawal sx. Plan: Continue detox
[2017-06-14] MEDS: THIAMINE HCL 100 MG TABLET (FP) PO SCH (22:44)
[2017-06-15] MEDS: hydrOXYzine PAMOATE 50 MG CAPSULE (FP) PO PRN (04:38)
[2017-06-15] MEDS: ACETAMINOPHEN 325 MG TABLET (FP) PO PRN (04:44)
[2017-06-15 06:15] VITALS: BP 121/72; PULSE 69; TEMP 97.1
--- NOTE | 2017-06-15 08:48 | DS ---
[facility] Detox Discharge Summary Admission Date: 06/10/17 Discharge Date: 06/15/17 - History Present History: Alcohol Dependence Additional Comments: follow up with after care program as arrangement Pertinent Past History: nicotine dependence - Physical Exam Results Vital Signs: Vital Signs Temperature 97.1 F L 06/15/17 06:15 Pulse Rate 69 06/15/17 06:15 Respiratory Rate 16 06/15/17 06:15 Blood Pressure 121/72 06/15/17 06:15 O2 Sat by Pulse Oximetry (%) Pertinent Admission Physical Exam Findings: withdrawal symptom - Treatment Hospital Course: Detox Protocol Followed, Detoxed Safely, Responded well, Discharged Condition Good Patient has Accepted a Rehab Referral to: declined - Medication Discharge Medications: Ambulatory Orders NK [No Known Home Medication] 06/10/17 - Diagnosis (1) Alcohol dependence with uncomplicated withdrawal Current Visit: Yes Status: Chronic (2) Nicotine dependence Current Visit: Yes Status: Chronic Qualifiers: Nicotine product type: cigarettes Substance use status: uncomplicated Qualified Code(s): F17.210 - Nicotine dependence, cigarettes, uncomplicated (3) History of hypercholesterolemia Current Visit: No Status: Suspected (4) Substance induced mood disorder Current Visit: No Status: Suspected - AMA Did Patient Leave Against Medical Advice: No
[2017-06-15] MEDS: NICOTINE 21 MG/24 HOURS TOPICAL PATCH TD SCH (09:38)
[2017-06-15] MEDS: PRENATAL VITAMINS W/ FOLIC ACID TABLET (FP) PO SCH (09:38)
[2017-06-15] MEDS: RANITIDINE HCL 150 MG TABLET (FP) PO SCH ×2 (13:50→14:05)
== END 2017-06-15 02:05 | disposition home or self-care (01) | DRG 775 ==
LOC: YASAS 15:15 → Y6N 20:56
PROVIDERS: ADMIT Internal Medicine Addiction Medicine; ATTEND Internal Medicine Addiction Medicine
PROC: HZ2ZZZZ Detoxification Services for Substance Abuse Treatment (ICD-10-PCS; principal; 2017-06-10)
DX: F10.230 Alcohol dependence with withdrawal, uncomplicated (principal); F17.210 Nicotine dependence, cigarettes, uncomplicated; F19.24 Other psychoactive substance dependence with psychoactive substance-induced mood disorder; E78.00 Pure hypercholesterolemia, unspecified; G40.509 Epileptic seizures related to external causes, not intractable, without status epilepticus
CPT/HCPCS: 36415; 80053; 81003; 85027; 86593; 93005; 93010

== ENCOUNTER 2018-03-18 19:06 | Inpatient (IN) | payer OTHER ==
[2018-03-18 20:03] VITALS: BMI 27.5
--- NOTE | 2018-03-18 20:34 | HP ---
COWS - Scale Resting Pulse: 1= [place] 81-100 Sweatin= Beads of Sweat on Face Restless Observation: 0= Sits Still Pupil Size: 0= Normal to Room Light Bone or Joint Aches: 4=Acute Joint/Muscle Pain Runny Nose/ Eye Tearin= None GI Upset > 30mins: 1= Stomach Cramp Tremor Observation: 2= Slight Tremor Visible Yawning Observation: 0= None Anxiety or Irritability: 2=Irritable/Anxious Goose Flesh Skin: 0=Smooth Skin COWS Score: 13 CIWA Score - CIWA Score Nausea/Vomitin-No Nausea/No Vomiting Muscle Tremors: 3 Anxiety: 3 Agitation: 0-Normal Activity Paroxysmal Sweats: 4-Forehead w/Sweat Beads Orientation: 2-Disoriented Date<2 days Tacttile Disturbances: 2-Mild Itch/Numbness/Burn Auditory Disturbances: 0-None Visual Disturbances: 0-None Headache: 2-Mild CIWA-Ar Total Score: 16 Admission ROS S - HPI Chief Complaint: SEEKING DETOX FOR WITHDRAWAL SX'S R/T ALCOHOL, HEROIN, XANAX ABUSE Allergies/Adverse Reactions: Allergies Allergy/AdvReac Type Severity Reaction Status Date / Time No Known Allergies Allergy Verified 06/10/17 22:22 History of Present Illness: 27 Y.O. MALE WITH HX/O POLYSUBSTANCE ABUSE HERE FOR DETOX FROM ALCOHOL, HEROIN, XANAX. CLIENT IS KNOWN TO THIS PROGRAM. LAST HERE A FEW MONTHS AGO. SELF REFERRED. DENIES ANY SIGNIFICANT PERIOD OF CLEAN TIME. REPORTS HE HAS HX/O OVERDOSE X2 LAST BEING 1.5 MONTHS AGO. REPORTS HX/O SI LAST BEING 4 YEARS AGO.SEIZURE R/T ETOH WITHDRAWAL. LAST BEING " MONTHS AGO". PRESENTLY DENIES SI/ HI, A/V HALLUCINATIONS. Exam Limitations: No Limitations - Ebola screening Have you traveled outside of the country in the last 21 days: No Have you had contact with anyone from an Ebola affected area: No Have you been sick,other than usual withdrawal symptoms: No Do you have a fever: No - Review of Systems Constitutional: Loss of Appetite, Malaise, Night Sweats, Unintentional Wgt. Loss EENT: reports: No Symptoms Reported Respiratory: reports: Shortness of Breath Cardiac: reports: No Symptoms Reported GI: reports: Poor Appetite, Abdominal cramping : reports: No Symptoms Reported Musculoskeletal: reports: Back Pain, Joint Pain Integumentary: reports: Sweating Neuro: reports: Headache Endocrine: reports: No Symptoms Reported Hematology: reports: No Symptoms Reported Psychiatric: reports: Anxious, Depressed Other Systems: Reviewed and Negative Patient History - Patient Medical History Hx Anemia: No Hx Asthma: No Hx Chronic Obstructive Pulmonary Disease (COPD): No Hx Cancer: No Hx Cardiac Disorders: No Hx Congestive Heart Failure: No Hx Hypertension: No Hx Hypercholesterolemia: Yes (NO MGMT) Hx Pacemaker: No HX Cerebrovascular Accident: No Hx Seizures: Yes (WITHDRAWAL) Hx Dementia: No Hx Diabetes: No Hx Gastrointestinal Disorders: No Hx Liver Disease: No Hx Genitourinary Disorders: No Hx Sexually Transmitted Disorders: No Hx Renal Disease (ESRD): No Hx Thyroid Disease: No Hx Human Immunodeficiency Virus (HIV): No Hx Hepatitis C: No Hx Depression: No Hx Suicide Attempt: Yes (4 YEARS AGO) Hx Bipolar Disorder: No Hx Schizophrenia: No - Patient Surgical History Past Surgical History: No Hx Neurologic Surgery: No Hx Cataract Extraction: No Hx Cardiac Surgery: No Hx Lung Surgery: No Hx Breast Surgery: No Hx Breast Biopsy: No Hx Abdominal Surgery: No Hx Appendectomy: No Hx Cholecystectomy: No Hx Genitourinary Surgery: No Hx Section: No Hx Orthopedic Surgery: No Anesthesia Reaction: No - PPD History Previous Implant?: Yes Documented Results: Negative w/proof Implanted On Prior [facility] Admission?: No Date: 11/10/16 Results: 0 MM PPD to be Administered?: Yes - Smoking Cessation Smoking history: Current every day smoker Have you smoked in the past 12 months: Yes Aproximately how many cigarettes per day: 5 Cigars Per Day: 0 Hx Chewing Tobacco Use: No Initiated information on smoking cessation: Yes 'Breaking Loose' booklet given: 03/18/18 - Substance & Tx. History Hx Alcohol Use: Yes Substance Use Type: Alcohol, Heroin, Tranquilizers Hx Substance Use Treatment: Yes ([facility]) - Substances Abused HEROIN Route: Inhalation Frequency: Daily Amount used: 4 Age of first use: 21 Date of Last Use: 03/18/18 BEER Route: Oral Frequency: 3-6 times per week Amount used: 10-24OZ CANS Age of first use: 16 Date of Last Use: 03/18/18 XANAX Route: Oral Frequency: 3-6 times per week Amount used: 8MG Age of first use: 23 Date of Last Use: 03/17/18 Family Disease History - Family Disease History Family History: Denies Admission Physical Exam [facility] - Vital Signs Vital Signs: Vital Signs - 24 hr 03/18/18 20:01 Temperature 98.3 F Pulse Rate 99 H Respiratory 18 Rate Blood Pressure 137/68 - Physical General Appearance: Yes: Appropriately Dressed, Tremorous (FELT), Sweating, Other HEENTM: Yes: EOMI, Normocephalic, Normal Voice, Pharynx Normal Respiratory: Yes: Chest Non-Tender, Lungs Clear, Normal Breath Sounds, No Respiratory Distress, No Accessory Muscle Use Neck: Yes: No masses,lesions,Nodules, Supple, Trachea in good position Breast: Yes: Breast Exam Deferred Cardiology: Yes: Regular Rhythm, Regular Rate, S1, S2 Abdominal: Yes: Normal Bowel Sounds, Non Tender, Flat, Soft Genitourinary: Yes: Within Normal Limits Back: Yes: Normal Inspection Musculoskeletal: Yes: full range of Motion, Gait Steady, Back pain (REPORTED) Extremities: Yes: Normal Range of Motion, Non-Tender, Tremors (FELT) Neurological: Yes: cloth baler II-XII NML intact, Fully Oriented, Alert, Motor Strength 5/5, Disoriented (TO DATE) Integumentary: Yes: Normal Color, Warm, Moist Lymphatic: Yes: Within Normal Limits - Diagnostic (1) Opioid dependence with withdrawal Current Visit: Yes Status: Acute (2) Sedative, hypnotic or anxiolytic dependence with withdrawal, uncomplicated Current Visit: Yes Status: Acute (3) Alcohol dependence with uncomplicated withdrawal Current Visit: Yes Status: Acute (4) Nicotine dependence Current Visit: Yes Status: Chronic Qualifiers: Nicotine product type: cigarettes Substance use status: uncomplicated Qualified Code(s): F17.210 - Nicotine dependence, cigarettes, uncomplicated (5) History of hypercholesterolemia Current Visit: Yes Status: Suspected (6) Substance induced mood disorder Current Visit: Yes Status: Suspected Cleared for Admission [facility] - Detox or Rehab [facility] Level of Care: Medically Managed Detox Regimen/Protocol: Methadone/Valium Claeared for Rehab Admission: No S Breath Alcohol Content Breath Alcohol Content: 0.121 Urine Drug Screen - Results Drug Screen Negative: No Urine Drug Screen Results: OPI-Opiates
[2018-03-18] MEDS ORDERED: NICOTINE POLACRILEX 2 MG GUM BUC PRN (20:49)
[2018-03-18] MEDS ORDERED: MAGNESIUM CITRATE 300 ML BOTTLE PO PRN (20:49)
[2018-03-18] MEDS ORDERED: hydrOXYzine PAMOATE 50 MG CAPSULE (FP) PO PRN (20:49)
[2018-03-18] MEDS ORDERED: MAGNESIUM HYDROX 2400MG/30ML ORAL SUSPENSION 30 ML CUP PO PRN (20:49)
[2018-03-18] MEDS ORDERED: LOPERAMIDE HCL 2 MG CAPSULE PO PRN (20:49)
[2018-03-18] MEDS ORDERED: diazePAM 5 MG TABLET PO ONE (20:49)
[2018-03-18] MEDS ORDERED: guaiFENesin/D-METHORPHAN HB 10 ML UNIT-DOSE CUPS PO PRN (20:49)
[2018-03-18] MEDS ORDERED: P-EPHED 60MG/TRIPROLIDI 2.5MG TABLET PO PRN (20:49)
[2018-03-18] MEDS ORDERED: METHADONE HCL 10 MG TABLET (FOR DETOX USE ONLY) PO ONE ×2 (20:49→23:00)
[2018-03-18] MEDS ORDERED: MENTHOL/PHENOL 1 EACH UD MM PRN (20:49)
[2018-03-18] MEDS ORDERED: IBUPROFEN 400 MG TABLET (FP) PO PRN (20:49)
[2018-03-18] MEDS ORDERED: MELATONIN 5 MG TABLETS PO PRN (22:00)
[2018-03-18] MEDS ORDERED: METHADONE HCL 10 MG TABLET (FOR DETOX USE ONLY) ONE (23:47)
[2018-03-18] MEDS: THIAMINE HCL 100 MG TABLET (FP) PO SCH (23:54)
[2018-03-19 02:23] LABS: URINE APPEARANCE CLEAR; URINE BILIRUBIN NEGATIVE (<2.0 mg/dL); URINE COLOR COLORLESS; URINE GLUCOSE (UA) NEGATIVE (NEGATIVE); URINE KETONE NEGATIVE (NEGATIVE); URINE LEUK ESTERASE NEGATIVE (NEGATIVE); URINE NITRITE NEGATIVE (NEGATIVE); URINE PROTEIN NEGATIVE (NEGATIVE); URINE UROBILINOGEN NEGATIVE mg/dL (0.2-1.0)
[2018-03-19] MEDS: diazePAM 5 MG TABLET PO SCH ×4 (05:57→22:23)
[2018-03-19] MEDS: MAG HYDROX/AL HYDROX/SIMETH 30 ML UNIT-DOSE CUP PO PRN (07:55)
--- NOTE | 2018-03-19 09:01 | EKG ---
Test Reason : Blood Pressure : / mmHG Vent. Rate : 069 BPM Atrial Rate : 069 BPM P-R Int : 150 ms QRS Dur : 090 ms QT Int : 374 ms P-R-T Axes : 020 051 040 degrees QTc Int : 400 ms NORMAL SINUS RHYTHM WHEN COMPARED WITH ECG OF 10-JUN-2017 22:43, NO SIGNIFICANT CHANGE WAS FOUND Confirmed by CAMILLA OLIVAS MD ([id number]) on 03/19/2018 9:01:18 AM Referred By: Confirmed By:CAMILLA OLIVAS MD
[2018-03-19 09:56] LABS: HEMATOCRIT 39.5 % (35.4-49); HEMOGLOBIN 13.3 GM/dL (11.7-16.9); MCH 32.1 pg (25.7-33.7); MCHC 33.7 g/dl (32.0-35.9); MEAN CELL VOLUME 95.1 fl (80-96); MEAN PLT VOLUME 7.6 fl (7.5-11.1); PLATELET COUNT 310 K/MM3 (134-434); RBC 4.16 M/mm3 (4.00-5.60); RDW 12.6 % (11.9-15.9); WHITE BLOOD COUNT 5.5 K/mm3 (4.0-10.0)
[2018-03-19] MEDS ORDERED: METHADONE HCL 10 MG TABLET (FOR DETOX USE ONLY) PO SCH (10:00)
[2018-03-19] MEDS: PRENATAL VITAMINS W/ FOLIC ACID TABLET (FP) PO SCH (10:33)
[2018-03-19] MEDS: NICOTINE 14 MG/24 HOURS TOPICAL PATCH TD SCH (10:34)
[2018-03-19] MEDS: diazePAM 5 MG TABLET PO PRN (10:34)
[2018-03-19 10:58] LABS: CHLORIDE 104 mmol/L (98-107); POTASSIUM 4.7 mmol/L (3.5-5.1); SODIUM 142 mmol/L (136-145)
[2018-03-19 11:06] LABS: ALBUMIN 3.4 g/dl (3.4-5.0); ALK PHOS 59 U/L (45-117); ANION GAP 7 (8-16); BILIRUBIN,TOTAL 0.3 mg/dL (0.2-1.0); BLOOD UREA NITROGEN 14 mg/dL (7-18); CALCIUM 8.3 mg/dL (8.5-10.1); CO2 31 mmol/L (21-32); CREATININE 1.1 mg/dL (0.7-1.3); GLUCOSE,RANDOM 78 mg/dL (74-106); SGOT/AST 20 U/L (15-37); SGPT/ALT 38 U/L (12-78); TOT PROT 6.4 g/dl (6.4-8.2)
--- NOTE | 2018-03-19 12:36 | PN ---
S CIWA - CIWA Score Nausea/Vomitin-No Nausea/No Vomiting Muscle Tremors: None Anxiety: 2 Agitation: 0-Normal Activity Paroxysmal Sweats: No Perspiration Orientation: 0-Oriented Tacttile Disturbances: 0-None Auditory Disturbances: 0-None S COWS - Scale Resting Pulse: 0= ID 80 or Below Sweatin= No chills or Flushing Restless Observation: 1= Difficult to Sit Still Pupil Size: 0= Normal to Room Light Bone or Joint Aches: 0= None Runny Nose/ Eye Tearin= None GI Upset > 30mins: 1= Stomach Cramp (pt complains of upset stomach) Tremor Observation of Outstretched Hands: 0= None Yawning Observation: 0= None
--- NOTE | 2018-03-19 12:42 | PN ---
S Progress Note (SOAP) Subjective: Pt here for withdrawal from alcohol, opiods and benzo's. PT states he still feels anxious would like to get more medications- methadone Objective: 03/19/18 12:37 CBC,CMP WBC 5.5 K/mm3 (4.0-10.0) 03/19/18 07:00 RBC 4.16 M/mm3 (4.00-5.60) 03/19/18 07:00 Hgb 13.3 GM/dL (11.7-16.9) 03/19/18 07:00 Hct 39.5 % (35.4-49) 03/19/18 07:00 MCV 95.1 fl (80-96) 03/19/18 07:00 MCH 32.1 pg (25.7-33.7) 03/19/18 07:00 MCHC 33.7 g/dl (32.0-35.9) 03/19/18 07:00 RDW 12.6 % (11.9-15.9) 03/19/18 07:00 Plt Count 310 K/MM3 (134-434) D 03/19/18 07:00 MPV 7.6 fl (7.5-11.1) 03/19/18 07:00 Sodium 142 mmol/L (136-145) 03/19/18 07:00 Potassium 4.7 mmol/L (3.5-5.1) 03/19/18 07:00 Chloride 104 mmol/L (98-107) 03/19/18 07:00 Carbon Dioxide 31 mmol/L (21-32) 03/19/18 07:00 Anion Gap 7 (8-16) L 03/19/18 07:00 BUN 14 mg/dL (7-18) 03/19/18 07:00 Creatinine 1.1 mg/dL (0.7-1.3) D 03/19/18 07:00 Creat Clearance w eGFR > 60 (>60) 03/19/18 07:00 Random Glucose 78 mg/dL (74-106) 03/19/18 07:00 Calcium 8.3 mg/dL (8.5-10.1) L 03/19/18 07:00 Total Bilirubin 0.3 mg/dL (0.2-1.0) D 06/22/18 07:00 AST 20 U/L (15-37) D 03/19/18 07:00 ALT 38 U/L (12-78) D 03/19/18 07:00 Alkaline Phosphatase 59 U/L (45-117) 03/19/18 07:00 Total Protein 6.4 g/dl (6.4-8.2) 03/19/18 07:00 Albumin 3.4 g/dl (3.4-5.0) 03/19/18 07:00 03/19/18 12:42 grossly nl PE alert and oriented, fully ambulatory Assessment: 03/19/18 12:43 Alcohol and opioid use disorders- on detox protocols. pt doing well except for feeling anxious Plan: Continue valium and methadone detox protocols. will add clonidine BID prn for symptomatic relief
[2018-03-19] MEDS ORDERED: cloNIDine HCL 0.1 MG TABLET PO ONE (13:30)
--- NOTE | 2018-03-19 14:11 | CONSULT ---
[facility] Psychiatric Consult - Data Date of interview: 03/19/18 Admission source: [facility] Identifying data: Patient is a 27 year old single male, without kids, unemployed (denies financial assistance), and currently homeless. This is one of multiple admissions for patient. Pt. admitted to for alcohol and opiate dependence. Substance Abuse History: - Smoking Cessation. Smoking history: Current every day smoker. Have you smoked in the past 12 months: Yes. Aproximately how many cigarettes per day: 5. Cigars Per Day: 0. Hx Chewing Tobacco Use: No. Initiated information on smoking cessation: Yes. 'Breaking Loose' booklet given : 03/18/18. - Substance & Tx. History. Hx Alcohol Use: Yes. Substance Use Type: Alcohol, Heroin, Tranquilizers. Hx Substance Use Treatment: Yes ([facility]). - Substances Abused. HEROIN. Route: Inhalation. Frequency: Daily. Amount used: 4. Age of first use: 21. Date of Last Use: 03/18/18. BEER. Route: Oral. Frequency: 3-6 times per week. Amount used: 10-24OZ CANS. Age of first use: 16. Date of Last Use: 03/18/18. XANAX. Route: Oral. Frequency: 3-6 times per week. Amount used: 8MG. Age of first use: 23. Date of Last Use: Medical History: hypercholesterolemia, Seizures (withdrawal) Psychiatric History: Patient states his only psychiatric contact was at 8 years of age due to inappropriate behavior. Pt. denies OPD as an adult. Pt. is minimizing information. Pt. denies h/o psychiatric hospitalizations and suicide attempt. Pt. requesting medication for anxiety. Physical/Sexual Abuse/Trauma History: Denies. Mental Status Exam - Mental Status Exam Alert and Oriented to: Time, Place, Person Cognitive Function: Good Patient Appearance: Well Groomed Mood: Withdrawn Affect: Flat Patient Behavior: Fatigued, Guarded Speech Pattern: Appropriate Voice Loudness: Moderately Soft/Quiet Thought Process: Goal Oriented Thought Disorder: Not Present Hallucinations: Denies Suicidal Ideation: Denies Homicidal Ideation: Denies Insight/Judgement: Poor Sleep: Fair Appetite: Fair Muscle strength/Tone: Normal Gait/Station: Normal Psychiatric Findings - Problem List ([place] 1, 2,3) (1) Alcohol dependence with uncomplicated withdrawal Current Visit: Yes Status: Chronic (2) Nicotine dependence Current Visit: Yes Status: Chronic Qualifiers: Nicotine product type: cigarettes Substance use status: uncomplicated Qualified Code(s): F17.210 - Nicotine dependence, cigarettes, uncomplicated (3) Substance induced mood disorder Current Visit: Yes Status: Acute (4) Opioid dependence with withdrawal Current Visit: Yes Status: Chronic (5) History of hypercholesterolemia Current Visit: Yes Status: Suspected - Initial Treatment Plan Initial Treatment Plan: Psychoeducation provided. Detoxification in progress. Vistaril 50mg q4h ordered by [facility]. Pt. made aware of vistaril medication that is available for him as needed.
--- NOTE | 2018-03-19 14:41 | PN ---
[facility] Progress Note Note: pt requesting flexeril for muscle cramping-ordered
[2018-03-19] MEDS ORDERED: ONDANSETRON *ODT* 4 MG TABLET SL PRN (15:02)
--- NOTE | 2018-03-19 15:05 | PN ---
[facility] Progress Note Note: pt with an episode of vomiting: tigan and prn zofran
[2018-03-19] MEDS ORDERED: TRIMETHOBENZAMIDE HCL 200MG/2ML INJ IM ONE (15:30)
[2018-03-19] MEDS: CYCLOBENZAPRINE HCL 10 MG TABLET (FP) PO SCH ×2 (16:16→22:23)
[2018-03-19] MEDS: THIAMINE HCL 100 MG TABLET (FP) PO SCH (22:23)
[2018-03-20] MEDS: cloNIDine HCL 0.1 MG TABLET PO PRN ×2 (00:12→18:29)
[2018-03-20] MEDS: diazePAM 5 MG TABLET PO PRN (00:12)
[2018-03-20] MEDS: CYCLOBENZAPRINE HCL 10 MG TABLET (FP) PO SCH ×3 (05:47→22:52)
[2018-03-20] MEDS: METHADONE HCL 5 MG TABLET (FOR DETOX USE ONLY) PO SCH (10:24)
[2018-03-20] MEDS: PRENATAL VITAMINS W/ FOLIC ACID TABLET (FP) PO SCH (10:24)
[2018-03-20] MEDS: diazePAM 5 MG TABLET PO SCH ×2 (10:24→22:52)
--- NOTE | 2018-03-20 10:54 | PN ---
S CIWA - CIWA Score Nausea/Vomitin Muscle Tremors: 2 Anxiety: 2 Agitation: 2 Paroxysmal Sweats: 2 Orientation: 0-Oriented Tacttile Disturbances: 1-Very Mild Itch/Numbness Auditory Disturbances: 1-Very Mild Visual Disturbances: 1-Very Mild Sensitivity Headache: 2-Mild CIWA-Ar Total Score: 15 BHS COWS - Scale Resting Pulse: 0= [place] 80 or Below Sweatin=Flushed/Facial Moisture Restless Observation: 0= Sits Still Pupil Size: 0= Normal to Room Light Bone or Joint Aches: 2= Severe Diffuse Aches Runny Nose/ Eye Tearin= Runny Nose/Eyes GI Upset > 30mins: 1= Stomach Cramp Tremor Observation of Outstretched Hands: 2= Slight Tremor Visible Yawning Observation: 0= None Anxiety or Irritability: 2=Irritable/Anxious Goose Flesh Skin: 0=Smooth Skin COWS Score: 11 S Progress Note (SOAP) Subjective: Tremors, back pain and interrupted sleep Objective: 03/20/18 10:54 Vital Signs 03/20/18 03/20/18 06:22 10:32 Temperature 97.3 F L 97.9 F Pulse Rate 51 L 68 Respiratory 18 20 Rate Blood Pressure 81/51 106/59 Laboratory Last Values WBC 5.5 K/mm3 (4.0-10.0) 03/19/18 07:00 RBC 4.16 M/mm3 (4.00-5.60) 03/19/18 07:00 Hgb 13.3 GM/dL (11.7-16.9) 03/19/18 07:00 Hct 39.5 % (35.4-49) 03/19/18 07:00 MCV 95.1 fl (80-96) 03/19/18 07:00 MCH 32.1 pg (25.7-33.7) 03/19/18 07:00 MCHC 33.7 g/dl (32.0-35.9) 03/19/18 07:00 RDW 12.6 % (11.9-15.9) 03/19/18 07:00 Plt Count 310 K/MM3 (134-434) D 03/19/18 07:00 MPV 7.6 fl (7.5-11.1) 03/19/18 07:00 Sodium 142 mmol/L (136-145) 03/19/18 07:00 Potassium 4.7 mmol/L (3.5-5.1) 03/19/18 07:00 Chloride 104 mmol/L (98-107) 03/19/18 07:00 Carbon Dioxide 31 mmol/L (21-32) 03/19/18 07:00 Anion Gap 7 (8-16) L 03/19/18 07:00 BUN 14 mg/dL (7-18) 03/19/18 07:00 Creatinine 1.1 mg/dL (0.7-1.3) D 03/19/18 07:00 Creat Clearance w eGFR > 60 (>60) 03/19/18 07:00 Random Glucose 78 mg/dL (74-106) 03/19/18 07:00 Calcium 8.3 mg/dL (8.5-10.1) L 03/19/18 07:00 Total Bilirubin 0.3 mg/dL (0.2-1.0) D 03/19/18 07:00 AST 20 U/L (15-37) D 03/19/18 07:00 ALT 38 U/L (12-78) D 03/19/18 07:00 Alkaline Phosphatase 59 U/L (45-117) 03/19/18 07:00 Total Protein 6.4 g/dl (6.4-8.2) 03/19/18 07:00 Albumin 3.4 g/dl (3.4-5.0) 03/19/18 07:00 Urine Color Colorless 03/19/18 00:33 Urine Appearance Clear 03/19/18 00:33 Urine pH 6.0 (5.0-8.0) 03/19/18 00:33 Ur Specific [place] 1.005 (1.001-1.035) 03/19/18 00:33 Urine Protein Negative (NEGATIVE) 03/19/18 00:33 Urine Glucose (UA) Negative (NEGATIVE) 03/19/18 00:33 Urine Ketones Negative (NEGATIVE) 03/19/18 00:33 Urine Blood Negative (NEGATIVE) 03/19/18 00:33 Urine Nitrite Negative (NEGATIVE) 03/19/18 00:33 Urine Bilirubin Negative (<2.0 mg/dL) 03/19/18 00:33 Urine Urobilinogen Negative mg/dL (0.2-1.0) 03/19/18 00:33 Ur Leukocyte Esterase Negative (NEGATIVE) 03/19/18 00:33 Labs noted Assessment: 03/20/18 10:54 Withdrawal sx Plan: Continue detox
[2018-03-20] MEDS: NICOTINE 14 MG/24 HOURS TOPICAL PATCH TD SCH (14:27)
[2018-03-20] MEDS: THIAMINE HCL 100 MG TABLET (FP) PO SCH (22:52)
[2018-03-21] MEDS: MAG HYDROX/AL HYDROX/SIMETH 30 ML UNIT-DOSE CUP PO PRN (03:34)
[2018-03-21] MEDS: CYCLOBENZAPRINE HCL 10 MG TABLET (FP) PO SCH ×2 (06:07→15:30)
[2018-03-21] MEDS: diazePAM 5 MG TABLET PO PRN (06:08)
[2018-03-21] MEDS: METHADONE HCL 5 MG TABLET (FOR DETOX USE ONLY) PO SCH (10:09)
[2018-03-21] MEDS: PRENATAL VITAMINS W/ FOLIC ACID TABLET (FP) PO SCH (10:09)
[2018-03-21] MEDS: diazePAM 5 MG TABLET PO SCH (10:09)
[2018-03-21] MEDS: NICOTINE 14 MG/24 HOURS TOPICAL PATCH TD SCH (10:09)
[2018-03-21] MEDS: ACETAMINOPHEN 325 MG TABLET (FP) PO PRN ×2 (10:28→17:23)
[2018-03-21] MEDS: RANITIDINE HCL 150 MG TABLET (FP) PO SCH (11:13)
--- NOTE | 2018-03-21 13:07 | PN ---
[facility] Progress Note (SOAP) Subjective: BODY ACHE TREMOR HEART BURN WANTS TO FOLLOW UP WITH THE PSYCHIATRIST REGARDING PSYCHOTROPIC MEDICATION Objective: 03/21/18 13:06 Vital Signs Temperature 99.5 F 03/21/18 10:24 Pulse Rate 79 03/21/18 10:24 Respiratory Rate 18 03/21/18 10:24 Blood Pressure 123/64 03/21/18 10:24 O2 Sat by Pulse Oximetry (%) Laboratory Last Values WBC 5.5 K/mm3 (4.0-10.0) 03/19/18 07:00 RBC 4.16 M/mm3 (4.00-5.60) 03/19/18 07:00 Hgb 13.3 GM/dL (11.7-16.9) 03/19/18 07:00 Hct 39.5 % (35.4-49) 03/19/18 07:00 MCV 95.1 fl (80-96) 03/19/18 07:00 MCH 32.1 pg (25.7-33.7) 03/19/18 07:00 MCHC 33.7 g/dl (32.0-35.9) 03/19/18 07:00 RDW 12.6 % (11.9-15.9) 03/19/18 07:00 Plt Count 310 K/MM3 (134-434) D 03/19/18 07:00 MPV 7.6 fl (7.5-11.1) 03/19/18 07:00 Sodium 142 mmol/L (136-145) 03/19/18 07:00 Potassium 4.7 mmol/L (3.5-5.1) 03/19/18 07:00 Chloride 104 mmol/L (98-107) 03/19/18 07:00 Carbon Dioxide 31 mmol/L (21-32) 03/19/18 07:00 Anion Gap 7 (8-16) L 03/19/18 07:00 BUN 14 mg/dL (7-18) 03/19/18 07:00 Creatinine 1.1 mg/dL (0.7-1.3) D 03/19/18 07:00 Creat Clearance w eGFR > 60 (>60) 03/19/18 07:00 Random Glucose 78 mg/dL (74-106) 03/19/18 07:00 Calcium 8.3 mg/dL (8.5-10.1) L 03/19/18 07:00 Total Bilirubin 0.3 mg/dL (0.2-1.0) D 03/19/18 07:00 AST 20 U/L (15-37) D 03/19/18 07:00 ALT 38 U/L (12-78) D 03/19/18 07:00 Alkaline Phosphatase 59 U/L (45-117) 03/19/18 07:00 Total Protein 6.4 g/dl (6.4-8.2) 03/19/18 07:00 Albumin 3.4 g/dl (3.4-5.0) 03/19/18 07:00 Urine Color Colorless 03/19/18 00:33 Urine Appearance Clear 03/19/18 00:33 Urine pH 6.0 (5.0-8.0) 03/19/18 00:33 Ur Specific [place] 1.005 (1.001-1.035) 03/19/18 00:33 Urine Protein Negative (NEGATIVE) 03/19/18 00:33 Urine Glucose (UA) Negative (NEGATIVE) 03/19/18 00:33 Urine Ketones Negative (NEGATIVE) 03/19/18 00:33 Urine Blood Negative (NEGATIVE) 03/19/18 00:33 Urine Nitrite Negative (NEGATIVE) 03/19/18 00:33 Urine Bilirubin Negative (<2.0 mg/dL) 03/19/18 00:33 Urine Urobilinogen Negative mg/dL (0.2-1.0) 03/19/18 00:33 Ur Leukocyte Esterase Negative (NEGATIVE) 03/19/18 00:33 RPR Titer Nonreactive (NONREACTIVE) 03/19/18 07:00 LAB NOTED Assessment: 03/21/18 13:06 WITHDRAWAL SX GERD ANXIETY Plan: CONTINUE DETOX [facility] REFERRAL
[2018-03-22] MEDS: CYCLOBENZAPRINE HCL 10 MG TABLET (FP) PO SCH ×2 (06:01→08:31)
[2018-03-22] MEDS: diazePAM 5 MG TABLET PO SCH (08:31)
[2018-03-22] MEDS: THIAMINE HCL 100 MG TABLET (FP) PO SCH (08:31)
[2018-03-22] MEDS: RANITIDINE HCL 150 MG TABLET (FP) PO SCH ×2 (08:31→09:59)
[2018-03-22] MEDS: PRENATAL VITAMINS W/ FOLIC ACID TABLET (FP) PO SCH (09:59)
[2018-03-22] MEDS: NICOTINE 14 MG/24 HOURS TOPICAL PATCH TD SCH (09:59)
[2018-03-22] MEDS ORDERED: METHADONE HCL 10 MG TABLET (FOR DETOX USE ONLY) PO SCH (10:00)
[2018-03-22] MEDS ORDERED: diazePAM 5 MG TABLET PO SCH (10:00)
--- NOTE | 2018-03-22 10:51 | PN ---
Psychiatric Progress Note Vital Signs: Vital Signs Period Temp Pulse Resp BP Sys/Mccord Pulse Ox Last 24 Hr 97.9 F-99.6 F 76-87 16-18 101-132/62-72 Date of Session: 03/22/18 Chief Complaint:: insomnia HPI: This is 27 years old male, homeless, unemployed, with no psychiatric hospitalization history male, currently on Detox due to Alcohol and Opioid dependency, reports inssomnia and anxiety Current Medications: Active Medications Generic Name Dose Route Start Last Admin Trade Name Freq PRN Reason Stop Dose Admin Acetaminophen 650 mg 03/18/18 20:49 03/21/18 17:23 Tylenol - PO 650 mg Q4H PRN Administration FEVER Al Hydroxide/Mg Hydroxide 30 ml 03/18/18 20:49 03/21/18 03:34 Mylanta Oral Suspension - PO 30 ml Q6H PRN Administration DYSPEPSIA Clonidine 0.1 mg 03/19/18 22:00 03/20/18 18:29 Catapres - PO 0.1 mg BID PRN Administration ANXIETY Cyclobenzaprine HCl 10 mg 03/19/18 15:20 03/22/18 08:31 Flexeril - PO Not Given TID MARGIE Eucalyptus/Menthol/Phenol/Sorbitol 1 each 03/18/18 20:49 Cepastat Lozenge - MM Q4H PRN SORE THROAT Guaifenesin 10 ml 03/18/18 20:49 Robitussin Dm - PO Q6H PRN COUGH Hydroxyzine Pamoate 50 mg 03/18/18 20:49 03/22/18 02:37 Vistaril - PO 50 mg Q4H PRN Administration AGITATION Loperamide HCl 4 mg 03/18/18 20:49 Imodium - PO Q6H PRN DIARRHEA Magnesium Citrate 300 ml 03/18/18 20:49 Citroma - PO Q48H PRN CONSTIPATION Magnesium Hydroxide 30 ml 03/18/18 20:49 Milk Of Magnesia - PO DAILY PRN CONSTIPATION Melatonin 5 mg 03/18/18 22:00 03/19/18 22:25 Melatonin PO 5 mg HS PRN Administration INSOMNIA Methadone HCl 5 mg 03/23/18 06:00 Dolophine - PO 03/23/18 06:01 DAILY@0600 MARGIE Nicotine 14 mg 03/19/18 10:00 03/22/18 09:59 Nicoderm Patch - TD 14 mg DAILY MARGIE Administration Nicotine Polacrilex 2 mg 03/18/18 20:49 Nicorette Gum - BUC Q2H PRN NICOTINE REPLACEMENT RX Ondansetron HCl 8 mg 03/19/18 15:02 03/19/18 17:43 Zofran Odt - SL 8 mg Q8H PRN Administration NAUSEA AND/OR VOMITING Multivit/Folic Acid/Iron 1 tab 03/19/18 10:00 03/22/18 09:59 Vitamins (Sjr) - PO 1 tab DAILY MARGIE Administration Pseudoephedrine/Triprolidine 1 combo 03/18/18 20:49 Actifed - PO TID PRN NASAL CONGESTION Ranitidine HCl 150 mg 03/21/18 11:00 03/22/18 09:59 Zantac - PO 150 mg BID MARGIE Administration Thiamine HCl 100 mg 03/18/18 22:00 03/22/18 08:31 Vitamin B1 - PO Not Given HS MARGIE Medication(s) Change(s): none Provider note:: Patient engaged in supportive psychotherapy, patient did not know he is on Vistaril 50mg po prn q4 for anxiety and insomnia, patient was instracted how to get this medicine when he needs it. Mental Status Exam - Mental Status Exam Alert and Oriented to: Place, Person Cognitive Function: Fair Patient Appearance: Well Groomed Mood: Anxious Affect: Mood Congruent Patient Behavior: Cooperative Speech Pattern: Appropriate Voice Loudness: Normal Thought Process: Goal Oriented Thought Disorder: Being Controlled Hallucinations: Denies Suicidal Ideation: Denies Homicidal Ideation: Denies Insight/Judgement: Fair Sleep: Difficulty falling asleep Appetite: Fair Muscle strength/Tone: Normal Gait/Station: Normal Additional Comments: Vistaril 50mg po p[rn q4 for agitation. Psychiatric Treatment Plan - Problem List (1) Drug-induced mood disorder Current Visit: Yes (2) Nicotine dependence Current Visit: Yes Qualifiers: Nicotine product type: cigarettes Substance use status: uncomplicated Qualified Code(s): F17.210 - Nicotine dependence, cigarettes, uncomplicated (3) Sedative, hypnotic or anxiolytic dependence with withdrawal, uncomplicated Current Visit: Yes (4) Substance induced mood disorder Current Visit: Yes (5) Alcohol dependence with uncomplicated withdrawal Current Visit: Yes (6) Opioid dependence with withdrawal Current Visit: Yes Initial treatment plan: Vistaril 50mg po p[rn q4 for agitation.
[2018-03-22 11:30] VITALS: BP 114/57; PULSE 78; TEMP 98
--- NOTE | 2018-03-22 11:42 | DS ---
[facility] Detox Discharge Summary Admission Date: 03/18/18 Discharge Date: 03/15/18 - History Present History: Alcohol Dependence, Opioid Dependence, Sedative Dependence Additional Comments: opiate benzo and alcohol withdrawal sx Vital Signs Temperature 98 F 03/22/18 11:28 Pulse Rate 78 03/22/18 11:28 Respiratory Rate 18 03/22/18 11:28 Blood Pressure 114/57 03/22/18 11:28 O2 Sat by Pulse Oximetry (%) Laboratory Last Values WBC 5.5 K/mm3 (4.0-10.0) 03/19/18 07:00 RBC 4.16 M/mm3 (4.00-5.60) 03/19/18 07:00 Hgb 13.3 GM/dL (11.7-16.9) 03/19/18 07:00 Hct 39.5 % (35.4-49) 03/19/18 07:00 MCV 95.1 fl (80-96) 03/19/18 07:00 MCH 32.1 pg (25.7-33.7) 03/19/18 07:00 MCHC 33.7 g/dl (32.0-35.9) 03/19/18 07:00 RDW 12.6 % (11.9-15.9) 03/19/18 07:00 Plt Count 310 K/MM3 (134-434) D 03/19/18 07:00 MPV 7.6 fl (7.5-11.1) 03/19/18 07:00 Sodium 142 mmol/L (136-145) 03/19/18 07:00 Potassium 4.7 mmol/L (3.5-5.1) 03/19/18 07:00 Chloride 104 mmol/L (98-107) 03/19/18 07:00 Carbon Dioxide 31 mmol/L (21-32) 03/19/18 07:00 Anion Gap 7 (8-16) L 03/19/18 07:00 BUN 14 mg/dL (7-18) 03/19/18 07:00 Creatinine 1.1 mg/dL (0.7-1.3) D 03/19/18 07:00 Creat Clearance w eGFR > 60 (>60) 03/19/18 07:00 Random Glucose 78 mg/dL (74-106) 03/19/18 07:00 Calcium 8.3 mg/dL (8.5-10.1) L 03/19/18 07:00 Total Bilirubin 0.3 mg/dL (0.2-1.0) D 03/19/18 07:00 AST 20 U/L (15-37) D 03/19/18 07:00 ALT 38 U/L (12-78) D 03/19/18 07:00 Alkaline Phosphatase 59 U/L (45-117) 03/19/18 07:00 Total Protein 6.4 g/dl (6.4-8.2) 03/19/18 07:00 Albumin 3.4 g/dl (3.4-5.0) 03/19/18 07:00 Urine Color Colorless 03/19/18 00:33 Urine Appearance Clear 03/19/18 00:33 Urine pH 6.0 (5.0-8.0) 03/19/18 00:33 Ur Specific [place] 1.005 (1.001-1.035) 03/19/18 00:33 Urine Protein Negative (NEGATIVE) 03/19/18 00:33 Urine Glucose (UA) Negative (NEGATIVE) 03/19/18 00:33 Urine Ketones Negative (NEGATIVE) 03/19/18 00:33 Urine Blood Negative (NEGATIVE) 03/19/18 00:33 Urine Nitrite Negative (NEGATIVE) 03/19/18 00:33 Urine Bilirubin Negative (<2.0 mg/dL) 03/19/18 00:33 Urine Urobilinogen Negative mg/dL (0.2-1.0) 03/19/18 00:33 Ur Leukocyte Esterase Negative (NEGATIVE) 03/19/18 00:33 RPR Titer Nonreactive (NONREACTIVE) 03/19/18 07:00 lab noted - Physical Exam Results Vital Signs: Vital Signs Temperature 98 F 03/22/18 11:28 Pulse Rate 78 03/22/18 11:28 Respiratory Rate 18 03/22/18 11:28 Blood Pressure 114/57 03/22/18 11:28 O2 Sat by Pulse Oximetry (%) Pertinent Admission Physical Exam Findings: 27 years old male admitted 03/18/18 for opiate alcohol and benzo withdrawal sx stated feeling better and would like to begin recovery process at [facility] rehab program alert oriented x 3 no acute distress, denies opiate alcohol and benzo withdrawal sx - Treatment Hospital Course: Detox Protocol Followed, Detoxed Safely, Responded well, Discharged Condition Good, Rehab Referral Accepted Patient has Accepted a Rehab Referral to: [facility] - Medication Discharge Medications: Ambulatory Orders NK [No Known Home Medication] 06/10/17 - Diagnosis (1) Nicotine dependence Current Visit: Yes Status: Acute Qualifiers: Nicotine product type: cigarettes Substance use status: in withdrawal Qualified Code(s): F17.213 - Nicotine dependence, cigarettes, with withdrawal (2) Sedative, hypnotic or anxiolytic dependence with withdrawal, uncomplicated Current Visit: Yes Status: Acute (3) Alcohol dependence with uncomplicated withdrawal Current Visit: Yes Status: Acute (4) Opioid dependence with withdrawal Current Visit: Yes Status: Acute - AMA Did Patient Leave Against Medical Advice: No
[2018-03-23] MEDS ORDERED: METHADONE HCL 5 MG TABLET (FOR DETOX USE ONLY) PO SCH (06:00)
== END 2018-03-22 12:40 | disposition home or self-care (01) | DRG 773 ==
LOC: YASAS 19:06 → Y6N 22:50
PROVIDERS: ADMIT Family Medicine Addiction Medicine; ATTEND Family Medicine Addiction Medicine
PROC: HZ2ZZZZ Detoxification Services for Substance Abuse Treatment (ICD-10-PCS; principal; 2018-03-18)
DX: F11.23 Opioid dependence with withdrawal (principal); F10.230 Alcohol dependence with withdrawal, uncomplicated; F13.230 Sedative, hypnotic or anxiolytic dependence with withdrawal, uncomplicated; F17.213 Nicotine dependence, cigarettes, with withdrawal; F19.24 Other psychoactive substance dependence with psychoactive substance-induced mood disorder; F41.9 Anxiety disorder, unspecified; K21.9 Gastro-esophageal reflux disease without esophagitis; Z86.69 Personal history of other diseases of the nervous system and sense organs; Z91.5 Personal history of self-harm
CPT/HCPCS: 36415; 71046-TC-FY; 80053; 81003; 85027; 86593; 93005; 93010; J0735; Q0162

== ENCOUNTER 2023-12-03 16:25 | Inpatient (IN) | payer OTHER ==
[2023-12-03 19:23] VITALS: BMI 29.2
[2023-12-03] MEDS ORDERED: guaiFENesin 600 MG TABLET.ER (FP) PO PRN (23:53)
[2023-12-03] MEDS ORDERED: MAG HYDROX/AL HYDROX/SIMETH 30 ML UNIT-DOSE CUP PO PRN (23:53)
[2023-12-03] MEDS ORDERED: NALOXONE HCL 0.4 MG/ML VIAL IM PRN (23:53)
[2023-12-03] MEDS ORDERED: BENZOCAINE/MENTHOL (CHLORASEPTIC ) LOZENGE MM PRN (23:53)
[2023-12-03] MEDS ORDERED: LOPERAMIDE HCL 2 MG CAPSULE PO PRN (23:53)
[2023-12-03] MEDS ORDERED: NALOXONE HCL (KLOXXADO) 8 MG SPRAY NS PRN (23:53)
[2023-12-03] MEDS ORDERED: POLYETHYLENE GLYCOL (HEALTHYLAX) 3350 17 GM PACKET PO PRN (23:53)
[2023-12-03] MEDS ORDERED: ACETAMINOPHEN 325 MG TABLET (FP) PO PRN (23:53)
[2023-12-03] MEDS ORDERED: BENZONATATE 200 MG CAPSULE PO PRN (23:53)
[2023-12-03] MEDS ORDERED: NICOTINE POLACRILEX 2 MG LOZENGE BC PRN (23:53)
[2023-12-03] MEDS ORDERED: MAGNESIUM HYDROX 2400MG/30ML ORAL SUSPENSION 30 ML CUP PO PRN (23:53)
[2023-12-03] MEDS ORDERED: IBUPROFEN 400 MG TABLET (FP) PO PRN (23:53)
[2023-12-04] MEDS: MELATONIN 5 MG TABLETS PO SCH (01:44)
[2023-12-04] MEDS ORDERED: methaDONE HCL 10 MG TABLET PO SCH (09:00)
[2023-12-04] MEDS ORDERED: methaDONE HCL 10 MG TABLET PO ONE (11:33)
[2023-12-04] MEDS: PRENATAL VITAMINS W/ FOLIC ACID TABLET (FP) PO SCH (12:45)
[2023-12-04] MEDS: NICOTINE 14 MG/24 HOURS TOPICAL PATCH TD SCH (12:46)
[2023-12-04 12:52] LABS: HEMATOCRIT 35.7 % (35.4-49); HEMOGLOBIN 12.4 GM/dL (11.7-16.9); MCH 31.5 pg (25.7-33.7); MCHC 34.8 g/dl (32.0-35.9); MEAN CELL VOLUME 90.5 fl (80-96); MEAN PLT VOLUME 7.3 fl (7.5-11.1); PLATELET COUNT 292 10^3/uL (134-434); RBC 3.95 M/mm3 (4.00-5.60); RDW 12.4 % (11.9-15.9); WHITE BLOOD COUNT 7.3 K/mm3 (4.0-10.0)
[2023-12-04 12:54] LABS: CHLORIDE 106 mmol/L (98-107); SODIUM 140 mmol/L (136-145)
[2023-12-04 12:58] LABS: CALCIUM 8.6 mg/dL (8.5-10.1)
[2023-12-04 12:59] LABS: ANION GAP 6 mmol/L (4-13); BLOOD UREA NITROGEN 13.6 mg/dL (7-18); CO2 27 mmol/L (21-32); GLUCOSE,RANDOM 77 mg/dL (74-106)
[2023-12-04 13:02] LABS: CREATININE 0.8 mg/dL (0.55-1.3); SGOT/AST 24 U/L (15-37); SGPT/ALT 35 U/L (13-61)
[2023-12-04 13:03] LABS: TOT PROT 6.2 g/dl (6.4-8.2)
[2023-12-04 13:04] LABS: BILIRUBIN,TOTAL 0.2 mg/dL (0.2-1)
[2023-12-04 13:05] LABS: ALK PHOS 103 U/L (45-117)
[2023-12-04 13:34] LABS: SYPHILIS W/ RPR CONF NON-REACTIVE (NONREACTIVE)
[2023-12-04] MEDS: THIAMINE HCL 100 MG TABLET (FP) PO SCH (21:47)
[2023-12-05] MEDS: IBUPROFEN 600 MG TABLET (FP) PO PRN (21:42)
[2023-12-05] MEDS: TRIMETHOBENZAMIDE HCL 200MG/2ML INJ IM ONE (22:38)
[2023-12-07 16:20] LABS: URINE APPEARANCE CLEAR; URINE BILIRUBIN NEGATIVE (NEGATIVE); URINE COLOR YELLOW; URINE GLUCOSE (UA) NEGATIVE (NEGATIVE); URINE KETONE NEGATIVE (NEGATIVE); URINE LEUK ESTERASE NEGATIVE (NEGATIVE); URINE NITRITE NEGATIVE (NEGATIVE); URINE PROTEIN NEGATIVE (NEGATIVE)
[2023-12-08 08:24] VITALS: RESP 18
[2023-12-09] MEDS: hydrOXYzine PAMOATE 25 MG CAPSULE (FP) PO PRN (01:17)
[2023-12-09 07:11] VITALS: BP 117/66; PULSE 60; TEMP 97.9
== END 2023-12-09 12:20 | disposition home or self-care (01) | DRG 772 ==
LOC: YASAS 16:25 → Y3NR 12-04 01:21 → Y5N 12-04 16:37
PROVIDERS: ADMIT Allergy & Immunology; ATTEND Psychiatry & Neurology Pain Medicine
PROC: HZ42ZZZ Group Counseling for Substance Abuse Treatment, Cognitive-Behavioral (ICD-10-PCS; principal; 2023-12-03)
DX: F11.20 Opioid dependence, uncomplicated (principal); F10.20 Alcohol dependence, uncomplicated; F14.20 Cocaine dependence, uncomplicated; F17.210 Nicotine dependence, cigarettes, uncomplicated; F25.0 Schizoaffective disorder, bipolar type; F19.24 Other psychoactive substance dependence with psychoactive substance-induced mood disorder; Z28.310 Unvaccinated for COVID-19; Z28.9 Immunization not carried out for unspecified reason; Z56.0 Unemployment, unspecified; Z88.8 Allergy status to other drugs, medicaments and biological substances; Z59.00 Homelessness unspecified
CPT/HCPCS: 36415; 71045-TC-FY; 80053; 80305; 80307; 81003; 85027; 86780; 86803; 87522; 87635; 87811; 93005; 93010

== ENCOUNTER 2024-01-25 10:35 | Inpatient (IN) | payer OTHER ==
[2024-01-25 11:19] VITALS: BMI 29.9
[2024-01-25] MEDS ORDERED: MAGNESIUM HYDROX 2400MG/30ML ORAL SUSPENSION 30 ML CUP PO PRN (11:44)
[2024-01-25] MEDS ORDERED: ACETAMINOPHEN 325 MG TABLET (FP) PO PRN (11:44)
[2024-01-25] MEDS ORDERED: hydrOXYzine PAMOATE 25 MG CAPSULE (FP) PO PRN (11:44)
[2024-01-25] MEDS ORDERED: NALOXONE HCL 0.4 MG/ML VIAL IM PRN (11:44)
[2024-01-25] MEDS ORDERED: NALOXONE HCL (KLOXXADO) 8 MG SPRAY NS PRN (11:44)
[2024-01-25] MEDS ORDERED: LOPERAMIDE HCL 2 MG CAPSULE PO PRN (11:44)
[2024-01-25] MEDS ORDERED: IBUPROFEN 400 MG TABLET (FP) PO PRN (11:44)
[2024-01-25] MEDS ORDERED: BENZOCAINE/MENTHOL (CHLORASEPTIC ) LOZENGE MM PRN (11:44)
[2024-01-25] MEDS ORDERED: guaiFENesin 600 MG TABLET.ER (FP) PO PRN (11:44)
[2024-01-25] MEDS ORDERED: MAG HYDROX/AL HYDROX/SIMETH 30 ML UNIT-DOSE CUP PO PRN (11:44)
[2024-01-25] MEDS ORDERED: POLYETHYLENE GLYCOL (HEALTHYLAX) 3350 17 GM PACKET PO PRN (11:44)
[2024-01-25] MEDS ORDERED: BENZONATATE 200 MG CAPSULE PO PRN (11:44)
[2024-01-25] MEDS ORDERED: NICOTINE 14 MG/24 HOURS TOPICAL PATCH TD ONE (13:42)
[2024-01-25] MEDS ORDERED: PRENATAL VITAMINS W/ FOLIC ACID TABLET (FP) PO ONE (13:42)
[2024-01-25] MEDS: PRENATAL VITAMINS W/ FOLIC ACID TABLET (FP) PO SCH ×2 (13:52→13:54)
[2024-01-25] MEDS: NICOTINE 14 MG/24 HOURS TOPICAL PATCH TD SCH ×2 (13:52→13:54)
[2024-01-25] MEDS: THIAMINE 100 MG TABLET PO SCH (22:22)
[2024-01-25] MEDS: MELATONIN 5 MG TABLETS PO SCH (22:22)
[2024-01-26] MEDS ORDERED: methaDONE HCL 40 MG DISPERSABLE TABLET PO SCH (06:00)
[2024-01-26 11:56] LABS: PH,URINE 6.5 (5.0-8.0); URINE APPEARANCE CLEAR; URINE BILIRUBIN NEGATIVE (NEGATIVE); URINE COLOR YELLOW; URINE GLUCOSE (UA) NEGATIVE (NEGATIVE); URINE KETONE NEGATIVE (NEGATIVE); URINE LEUK ESTERASE NEGATIVE (NEGATIVE); URINE NITRITE NEGATIVE (NEGATIVE); URINE PROTEIN NEGATIVE (NEGATIVE)
[2024-01-28] MEDS ORDERED: PRENATAL VITAMINS W/ FOLIC ACID TABLET (FP) PO PRN (16:48)
[2024-01-28] MEDS ORDERED: NICOTINE 14 MG/24 HOURS TOPICAL PATCH TD PRN (16:48)
[2024-01-29 14:49] LABS: CHLORIDE 103 mmol/L (98-107); POTASSIUM 3.8 mmol/L (3.5-5.1); SODIUM 133 mmol/L (136-145)
[2024-01-29 14:52] LABS: ALBUMIN 3.7 g/dl (3.4-5.0); ANION GAP 3 mmol/L (4-13); CALCIUM 9.5 mg/dL (8.5-10.1); CO2 27 mmol/L (21-32)
[2024-01-29 14:53] LABS: BLOOD UREA NITROGEN 13.5 mg/dL (7-18); GLUCOSE,RANDOM 127 mg/dL (74-106); MAGNESIUM 1.9 mg/dL (1.8-2.4)
[2024-01-29 14:55] LABS: SGPT/ALT 59 U/L (13-61)
[2024-01-29 14:56] LABS: SGOT/AST 39 U/L (15-37)
[2024-01-29 14:57] LABS: BILIRUBIN,TOTAL 0.4 mg/dL (0.2-1); TOT PROT 7.4 g/dl (6.4-8.2)
[2024-01-29 14:58] LABS: ALK PHOS 96 U/L (45-117)
[2024-01-29 15:04] LABS: PROTHROMBIN TIME (PATIENT) 11.3 SEC (9.7-13.0)
[2024-01-29 15:16] LABS: SYPHILIS W/ RPR CONF NON-REACTIVE (NONREACTIVE)
[2024-01-29 17:09] LABS: BASO % 0.4 % (0-2.0); EOS % 2.8 % (0-4.5); LYMPH % 47.2 % (8-40); MCH 30.5 pg (25.7-33.7); MCHC 33.2 g/dl (32.0-35.9); MEAN CELL VOLUME 91.8 fl (80-96); MEAN PLT VOLUME 7.9 fl (7.5-11.1); MONO % 4.6 % (3.8-10.2); PLATELET COUNT 282 10^3/uL (134-434); RBC 4.58 M/mm3 (4.00-5.60); RDW 13.5 % (11.9-15.9); WHITE BLOOD COUNT 4.2 K/mm3 (4.0-10.0)
[2024-01-29] MEDS: OLANZapine 5 MG TABLET PO SCH (21:33)
[2024-02-01] MEDS: IBUPROFEN 600 MG TABLET (FP) PO PRN (11:12)
[2024-02-01] MEDS: LACTULOSE 20 GM/30 ML UDC (FOR ORAL USE ONLY) PO SCH (15:54)
[2024-02-01] MEDS: BACITRACIN 0.9 GM PACKET TP SCH (21:32)
[2024-02-02] MEDS: methaDONE HCL 40 MG DISPERSABLE TABLET PO SCH (06:55)
[2024-02-02] MEDS: QUEtiapine FUMARATE 100 MG TABLET (FP) PO SCH (21:53)
[2024-02-03 06:58] VITALS: TEMP 97.3
[2024-02-04 06:41] VITALS: BP 115/72; PULSE 96; RESP 16
== END 2024-02-04 13:30 | disposition left against medical advice (07) | DRG 772 ==
LOC: YASAS 10:35 → Y3NR 13:55 → Y3E 01-27 09:52
PROVIDERS: ADMIT Allergy & Immunology; ATTEND Psychiatry & Neurology Pain Medicine
PROC: HZ42ZZZ Group Counseling for Substance Abuse Treatment, Cognitive-Behavioral (ICD-10-PCS; principal; 2024-01-25)
DX: F11.20 Opioid dependence, uncomplicated (principal); F10.20 Alcohol dependence, uncomplicated; F14.20 Cocaine dependence, uncomplicated; F17.210 Nicotine dependence, cigarettes, uncomplicated; F25.0 Schizoaffective disorder, bipolar type; F19.282 Other psychoactive substance dependence with psychoactive substance-induced sleep disorder; F19.24 Other psychoactive substance dependence with psychoactive substance-induced mood disorder; E72.20 Disorder of urea cycle metabolism, unspecified; E78.00 Pure hypercholesterolemia, unspecified; B18.2 Chronic viral hepatitis C; H60.01 Abscess of right external ear; L98.491 Non-pressure chronic ulcer of skin of other sites limited to breakdown of skin; S30.812A Abrasion of penis, initial encounter; X58.XXXA Exposure to other specified factors, initial encounter; Y93.9 Activity, unspecified; Y92.9 Unspecified place or not applicable; Z28.310 Unvaccinated for COVID-19; Z28.9 Immunization not carried out for unspecified reason; Z56.0 Unemployment, unspecified; Z59.00 Homelessness unspecified; Z88.8 Allergy status to other drugs, medicaments and biological substances
CPT/HCPCS: 36415; 80053; 80305; 80307; 81003; 82140; 82652; 82962; 83735; 85025; 85610; 86780; 86803; 87522; 87811

== ENCOUNTER 2024-02-16 17:33 | Inpatient (IN) | payer OTHER ==
[2024-02-16 18:26] VITALS: BMI 29.4
[2024-02-16] MEDS ORDERED: NICOTINE POLACRILEX 2 MG GUM BUC PRN (18:46)
[2024-02-16] MEDS ORDERED: BENZOCAINE/MENTHOL (CHLORASEPTIC ) LOZENGE MM PRN (18:46)
[2024-02-16] MEDS ORDERED: DICYCLOMINE HCL 10 MG CAPSULE PO PRN (18:46)
[2024-02-16] MEDS ORDERED: IBUPROFEN 400 MG TABLET (FP) PO PRN (18:46)
[2024-02-16] MEDS ORDERED: POLYETHYLENE GLYCOL (HEALTHYLAX) 3350 17 GM PACKET PO PRN (18:46)
[2024-02-16] MEDS ORDERED: IBUPROFEN 600 MG TABLET (FP) PO PRN (18:46)
[2024-02-16] MEDS ORDERED: METHOCARBAMOL 500 MG TABLET PO PRN (18:46)
[2024-02-16] MEDS ORDERED: MAG HYDROX/AL HYDROX/SIMETH 30 ML UNIT-DOSE CUP PO PRN (18:46)
[2024-02-16] MEDS ORDERED: ONDANSETRON *ODT* 4 MG TABLET SL PRN (18:46)
[2024-02-16] MEDS ORDERED: ACETAMINOPHEN 325 MG TABLET (FP) PO PRN (18:46)
[2024-02-16] MEDS ORDERED: NALOXONE HCL (KLOXXADO) 8 MG SPRAY NS PRN (18:46)
[2024-02-16] MEDS ORDERED: LOPERAMIDE HCL 2 MG CAPSULE PO PRN (18:46)
[2024-02-16] MEDS ORDERED: BENZONATATE 200 MG CAPSULE PO PRN (18:46)
[2024-02-16] MEDS ORDERED: guaiFENesin 600 MG TABLET.ER (FP) PO PRN (18:46)
[2024-02-16] MEDS ORDERED: NALOXONE HCL 0.4 MG/ML VIAL IM PRN (18:46)
[2024-02-16] MEDS ORDERED: MAGNESIUM HYDROX 2400MG/30ML ORAL SUSPENSION 30 ML CUP PO PRN (18:46)
[2024-02-16] MEDS ORDERED: BISMUTH SUBSALICYLATE 524 MG/30 ML PO PRN (18:46)
[2024-02-16] MEDS: MELATONIN 5 MG TABLETS PO SCH (22:37)
[2024-02-16] MEDS: THIAMINE 100 MG TABLET PO SCH (22:37)
[2024-02-17 06:10] VITALS: PULSE 64
[2024-02-17 09:35] VITALS: BP 104/58; RESP 19; TEMP 96.9
[2024-02-17] MEDS: PRENATAL VITAMINS W/ FOLIC ACID TABLET (FP) PO SCH (10:13)
[2024-02-17] MEDS: methaDONE HCL 10 MG TABLET PO SCH (10:31)
== END 2024-02-17 13:57 | disposition home or self-care (01) | DRG 773 ==
LOC: YASAS 17:33 → Y3N 19:03
PROVIDERS: ADMIT Allergy & Immunology; ATTEND Surgery
PROC: HZ2ZZZZ Detoxification Services for Substance Abuse Treatment (ICD-10-PCS; principal; 2024-02-16)
DX: F11.20 Opioid dependence, uncomplicated (principal); F14.20 Cocaine dependence, uncomplicated; F10.10 Alcohol abuse, uncomplicated; F12.20 Cannabis dependence, uncomplicated; F17.210 Nicotine dependence, cigarettes, uncomplicated; F25.0 Schizoaffective disorder, bipolar type; F19.282 Other psychoactive substance dependence with psychoactive substance-induced sleep disorder; F19.24 Other psychoactive substance dependence with psychoactive substance-induced mood disorder; Z59.02 Unsheltered homelessness; Z56.0 Unemployment, unspecified; Z88.8 Allergy status to other drugs, medicaments and biological substances
CPT/HCPCS: 80305

== ENCOUNTER 2024-03-29 12:06 | Inpatient (IN) | payer OTHER ==
[2024-03-29 12:48] VITALS: BMI 25.7
[2024-03-29] MEDS ORDERED: NALOXONE (NARCAN) HCL 4 MG/0.1 ML SPRAY NS PRN (13:10)
[2024-03-29] MEDS ORDERED: diazePAM 5 MG TABLET PO PRN (13:10)
[2024-03-29] MEDS ORDERED: IBUPROFEN 400 MG TABLET (FP) PO PRN (13:10)
[2024-03-29] MEDS ORDERED: BENZONATATE 200 MG CAPSULE PO PRN (13:10)
[2024-03-29] MEDS ORDERED: LOPERAMIDE HCL 2 MG CAPSULE PO PRN (13:10)
[2024-03-29] MEDS ORDERED: POLYETHYLENE GLYCOL (HEALTHYLAX) 3350 17 GM PACKET PO PRN (13:10)
[2024-03-29] MEDS ORDERED: BISMUTH SUBSALICYLATE 524 MG/30 ML PO PRN (13:10)
[2024-03-29] MEDS ORDERED: NALOXONE HCL 0.4 MG/ML VIAL IM PRN (13:10)
[2024-03-29] MEDS ORDERED: BENZOCAINE/MENTHOL (CHLORASEPTIC ) LOZENGE MM PRN (13:10)
[2024-03-29] MEDS ORDERED: hydrOXYzine PAMOATE 25 MG CAPSULE (FP) PO PRN (13:10)
[2024-03-29] MEDS ORDERED: MAGNESIUM HYDROX 2400MG/30ML ORAL SUSPENSION 30 ML CUP PO PRN (13:10)
[2024-03-29] MEDS ORDERED: ONDANSETRON *ODT* 4 MG TABLET SL PRN (13:10)
[2024-03-29] MEDS ORDERED: MAG HYDROX/AL HYDROX/SIMETH 30 ML UNIT-DOSE CUP PO PRN (13:10)
[2024-03-29] MEDS ORDERED: DICYCLOMINE HCL 10 MG CAPSULE PO PRN (13:10)
[2024-03-29] MEDS ORDERED: guaiFENesin 600 MG TABLET.ER (FP) PO PRN (13:10)
[2024-03-29] MEDS ORDERED: BUPRENORPHINE/NALOXONE 0.5 MG/0.125 MG FILM ONE (13:35)
[2024-03-29] MEDS ORDERED: cloNIDine HCL 0.1 MG TABLET ONE (13:35)
[2024-03-29] MEDS ORDERED: diazePAM 5 MG TABLET ONE (13:35)
[2024-03-29] MEDS ORDERED: PRENATAL VITAMINS W/ FOLIC ACID TABLET (FP) PO ONE (13:36)
[2024-03-29] MEDS ORDERED: methaDONE HCL 10 MG TABLET (FOR DETOX USE ONLY) ONE (13:37)
[2024-03-29] MEDS: PRENATAL VITAMINS W/ FOLIC ACID TABLET (FP) PO SCH (13:46)
[2024-03-29] MEDS: BUPRENORPHINE/NALOXONE 0.5 MG/0.125 MG FILM SL ONE ×2 (13:46→22:52)
[2024-03-29] MEDS: diazePAM 5 MG TABLET PO SCH (13:46)
[2024-03-29] MEDS: methaDONE HCL 10 MG TABLET (FOR DETOX USE ONLY) PO ONE (13:46)
[2024-03-29] MEDS: cloNIDine HCL 0.1 MG TABLET PO SCH (13:47)
[2024-03-29] MEDS: ACAMPROSATE CALCIUM 333 MG TABLET.DR PO SCH (14:20)
[2024-03-29] MEDS: THIAMINE 100 MG TABLET PO SCH (22:51)
[2024-03-29] MEDS: MELATONIN 5 MG TABLETS PO SCH (22:51)
[2024-03-30] MEDS: NICOTINE 21 MG/24 HOURS TOPICAL PATCH TD SCH (10:20)
[2024-03-30] MEDS: BUPRENORPHINE/NALOXONE 0.5 MG/0.125 MG FILM SL SCH ×2 (10:21→23:28)
[2024-03-30 11:52] LABS: POTASSIUM 4.2 mmol/L (3.5-5.1)
[2024-03-30 11:55] LABS: CALCIUM 8.7 mg/dL (8.5-10.1); HEMATOCRIT 38.4 % (35.4-49); HEMOGLOBIN 13.3 GM/dL (11.7-16.9); MCH 31.2 pg (25.7-33.7); MCHC 34.6 g/dl (32.0-35.9); MEAN PLT VOLUME 7.6 fl (7.5-11.1); PLATELET COUNT 262 10^3/uL (134-434); RBC 4.26 M/mm3 (4.00-5.60); RDW 12.9 % (11.9-15.9); WHITE BLOOD COUNT 4.4 K/mm3 (4.0-10.0)
[2024-03-30 11:56] LABS: ALBUMIN 3.4 g/dl (3.4-5.0); BLOOD UREA NITROGEN 12.7 mg/dL (7-18)
[2024-03-30 11:59] LABS: CREATININE 0.8 mg/dL (0.55-1.3)
[2024-03-30 12:00] LABS: BILIRUBIN,TOTAL 0.4 mg/dL (0.2-1)
[2024-03-30 12:01] LABS: TOT PROT 6.4 g/dl (6.4-8.2)
[2024-03-30] MEDS ORDERED: BENZOCAINE 20 % GEL TUBE MM PRN (13:06)
[2024-03-30] MEDS: LACTULOSE 20 GM/30 ML UDC (FOR ORAL USE ONLY) PO SCH (17:45)
[2024-03-30] MEDS: METHOCARBAMOL 500 MG TABLET PO PRN (17:48)
[2024-03-31] MEDS: diazePAM 5 MG TABLET PO SCH (06:24)
[2024-03-31] MEDS: BUPRENORPHINE/NALOXONE 2 MG/0.5 MG FILM PACKET SL SCH (09:40)
[2024-03-31] MEDS: methaDONE HCL 10 MG TABLET (FOR DETOX USE ONLY) PO ONE (09:41)
[2024-03-31] MEDS: OLANZapine 10 MG TABLET PO SCH (22:40)
[2024-04-01] MEDS: diazePAM 5 MG TABLET PO SCH (05:56)
[2024-04-01] MEDS: BUPRENORPHINE/NALOXONE 4 MG/1 MG FILM PACKET SL SCH (09:40)
[2024-04-01] MEDS: ACETAMINOPHEN 325 MG TABLET (FP) PO PRN (17:28)
[2024-04-02] MEDS: diazePAM 5 MG TABLET PO ONE (05:54)
[2024-04-02] MEDS: BUPRENORPHINE/NALOXONE 8 MG/2 MG FILM PACKET SL SCH (10:31)
[2024-04-02] MEDS: methaDONE HCL 10 MG TABLET (FOR DETOX USE ONLY) PO ONE (10:31)
[2024-04-03] MEDS: IBUPROFEN 600 MG TABLET (FP) PO PRN (05:41)
[2024-04-03] MEDS: BUPRENORPHINE/NALOXONE 8 MG/2 MG FILM PACKET SL SCH (09:48)
[2024-04-04 08:40] VITALS: BP 114/67; PULSE 69; RESP 16; TEMP 98.4
[2024-04-04] MEDS ORDERED: BUPRENORPHINE/NALOXONE 8 MG/2 MG FILM PACKET SL SCH (10:00)
== END 2024-04-04 09:09 | disposition home or self-care (01) | DRG 773 ==
LOC: YASAS 12:06 → Y6N 14:00
PROVIDERS: ADMIT Allergy & Immunology; ATTEND Surgery
PROC: HZ2ZZZZ Detoxification Services for Substance Abuse Treatment (ICD-10-PCS; principal; 2024-03-29)
DX: F11.23 Opioid dependence with withdrawal (principal); F10.230 Alcohol dependence with withdrawal, uncomplicated; F14.20 Cocaine dependence, uncomplicated; F17.210 Nicotine dependence, cigarettes, uncomplicated; F25.9 Schizoaffective disorder, unspecified; F31.9 Bipolar disorder, unspecified; R79.89 Other specified abnormal findings of blood chemistry; Z56.0 Unemployment, unspecified; Z59.00 Homelessness unspecified; Z88.8 Allergy status to other drugs, medicaments and biological substances
CPT/HCPCS: 36415; 80053; 80305; 82140; 85027; 86780; 93005; 93010

== ENCOUNTER 2024-06-12 21:21 | Inpatient (IN) | payer OTHER ==
[2024-06-12 22:01] VITALS: BMI 29.9
[2024-06-12] MEDS ORDERED: BENZOCAINE/MENTHOL (CHLORASEPTIC ) LOZENGE MM PRN (22:52)
[2024-06-12] MEDS ORDERED: NICOTINE POLACRILEX 2 MG GUM BUC PRN (22:52)
[2024-06-12] MEDS ORDERED: BISMUTH SUBSALICYLATE 524 MG/30 ML PO PRN (22:52)
[2024-06-12] MEDS ORDERED: ONDANSETRON *ODT* 4 MG TABLET SL PRN (22:52)
[2024-06-12] MEDS ORDERED: ACETAMINOPHEN 325 MG TABLET (FP) PO PRN (22:52)
[2024-06-12] MEDS ORDERED: POLYETHYLENE GLYCOL (HEALTHYLAX) 3350 17 GM PACKET PO PRN (22:52)
[2024-06-12] MEDS ORDERED: guaiFENesin 600 MG TABLET.ER (FP) PO PRN (22:52)
[2024-06-12] MEDS ORDERED: MAG HYDROX/AL HYDROX/SIMETH 30 ML UNIT-DOSE CUP PO PRN (22:52)
[2024-06-12] MEDS ORDERED: NALOXONE HCL 0.4 MG/ML VIAL IM PRN (22:52)
[2024-06-12] MEDS ORDERED: NALOXONE (NARCAN) HCL 4 MG/0.1 ML SPRAY NS PRN (22:52)
[2024-06-12] MEDS ORDERED: LOPERAMIDE HCL 2 MG CAPSULE PO PRN (22:52)
[2024-06-12] MEDS ORDERED: DICYCLOMINE HCL 10 MG CAPSULE PO PRN (22:52)
[2024-06-12] MEDS ORDERED: BENZONATATE 200 MG CAPSULE PO PRN (22:52)
[2024-06-12] MEDS ORDERED: MAGNESIUM HYDROX 2400MG/30ML ORAL SUSPENSION 30 ML CUP PO PRN (22:52)
[2024-06-12] MEDS ORDERED: BENZOCAINE 20 % GEL TUBE MM PRN (23:00)
[2024-06-13] MEDS: PRENATAL VITAMINS W/ FOLIC ACID TABLET (FP) PO SCH (10:31)
[2024-06-13] MEDS: NICOTINE 14 MG/24 HOURS TOPICAL PATCH TD SCH (10:31)
[2024-06-13] MEDS: IBUPROFEN 600 MG TABLET (FP) PO PRN (10:51)
[2024-06-13] MEDS: BACITRACIN ZINC 15 GM TUBE TOPICAL OINTMENT TP SCH (10:53)
[2024-06-13] MEDS: methaDONE HCL 10 MG TABLET PO ONE (11:18)
[2024-06-13 11:39] LABS: CHLORIDE 106 mmol/L (98-107); HEMOGLOBIN 11.9 GM/dL (11.7-16.9); MCH 32.3 pg (25.7-33.7); MCHC 33.9 g/dl (32.0-35.9); MEAN CELL VOLUME 95.2 fl (80-96); MEAN PLT VOLUME 7.5 fl (7.5-11.1); PLATELET COUNT 272 10^3/uL (134-434); POTASSIUM 3.7 mmol/L (3.5-5.1); RBC 3.68 M/mm3 (4.00-5.60); RDW 12.7 % (11.9-15.9); SODIUM 140 mmol/L (136-145); WHITE BLOOD COUNT 4.3 K/mm3 (4.0-10.0)
[2024-06-13 11:44] LABS: ALBUMIN 3.1 g/dl (3.4-5.0); ANION GAP 7 mmol/L (4-13); CALCIUM 8.9 mg/dL (8.5-10.1); CO2 26 mmol/L (21-32)
[2024-06-13 11:45] LABS: GLUCOSE,RANDOM 134 mg/dL (74-106)
[2024-06-13 11:47] LABS: SGPT/ALT 55 U/L (13-61)
[2024-06-13 11:48] LABS: CREATININE 0.8 mg/dL (0.55-1.3); SGOT/AST 44 U/L (15-37)
[2024-06-13 11:49] LABS: BILIRUBIN,TOTAL 0.9 mg/dL (0.2-1); TOT PROT 6.1 g/dl (6.4-8.2)
[2024-06-13 11:50] LABS: ALK PHOS 79 U/L (45-117)
[2024-06-13] MEDS ORDERED: methaDONE HCL 10 MG TABLET PO PRN (12:56)
[2024-06-13] MEDS: cloNIDine HCL 0.1 MG TABLET PO SCH (13:35)
[2024-06-13] MEDS: THIAMINE 100 MG TABLET PO SCH (22:36)
[2024-06-13] MEDS: OLANZapine 10 MG TABLET PO ONE (22:36)
[2024-06-13] MEDS: MELATONIN 5 MG TABLETS PO SCH (22:38)
[2024-06-13] MEDS: hydrOXYzine PAMOATE 25 MG CAPSULE (FP) PO PRN (22:55)
[2024-06-13] MEDS: ACETAMINOPHEN 325 MG TABLET (FP) PO PRN (22:55)
[2024-06-14] MEDS ORDERED: diazePAM 5 MG TABLET PO PRN (09:18)
[2024-06-14] MEDS: diazePAM 5 MG TABLET PO SCH (10:29)
[2024-06-14] MEDS: methaDONE 40 MG, methaDONE 10 MG PO ONE (10:30)
[2024-06-14] MEDS: PETROLATUM, WHITE 30 GM TUBE TP SCH (10:49)
[2024-06-14] MEDS: IBUPROFEN 400 MG TABLET (FP) PO PRN (12:34)
[2024-06-14] MEDS: ACAMPROSATE CALCIUM 333 MG TABLET.DR PO SCH (13:14)
[2024-06-14] MEDS: METHOCARBAMOL 500 MG TABLET PO PRN (13:14)
[2024-06-15] MEDS ORDERED: cloNIDine HCL 0.1 MG TABLET PO PRN
[2024-06-15 08:41] VITALS: BP 125/66; PULSE 77; RESP 18; TEMP 98.9
[2024-06-15] MEDS: methaDONE 40 MG, methaDONE 20 MG PO ONE (09:52)
[2024-06-15] MEDS: VITAMINS A AND D TOPICAL OINTMENT TP SCH (10:05)
[2024-06-16] MEDS ORDERED: diazePAM 5 MG TABLET PO SCH (06:00)
[2024-06-16] MEDS ORDERED: methaDONE 40 MG, methaDONE 30 MG PO ONE (10:00)
[2024-06-17] MEDS ORDERED: diazePAM 5 MG TABLET PO SCH (06:00)
[2024-06-17] MEDS ORDERED: methaDONE HCL 40 MG DISPERSABLE TABLET PO ONE (10:00)
[2024-06-18] MEDS ORDERED: diazePAM 5 MG TABLET PO ONE (06:00)
[2024-06-18] MEDS ORDERED: methaDONE 80 MG, methaDONE 10 MG PO ONE (10:00)
== END 2024-06-15 09:22 | disposition left against medical advice (07) | DRG 770 ==
LOC: YASAS 21:21 → Y6N 23:26
PROVIDERS: ADMIT Allergy & Immunology; ATTEND Surgery
PROC: HZ2ZZZZ Detoxification Services for Substance Abuse Treatment (ICD-10-PCS; principal; 2024-06-12)
DX: F11.23 Opioid dependence with withdrawal (principal); F10.230 Alcohol dependence with withdrawal, uncomplicated; F17.210 Nicotine dependence, cigarettes, uncomplicated; F25.9 Schizoaffective disorder, unspecified; F19.282 Other psychoactive substance dependence with psychoactive substance-induced sleep disorder; F19.24 Other psychoactive substance dependence with psychoactive substance-induced mood disorder; F90.9 Attention-deficit hyperactivity disorder, unspecified type; Z88.8 Allergy status to other drugs, medicaments and biological substances
CPT/HCPCS: 36415; 72170-TC-FY; 73502-TC-RT-FY; 80053; 80305; 80307; 82947; 83036; 85027; 86780

== ENCOUNTER 2024-08-24 15:34 | Inpatient (IN) | payer OTHER ==
[2024-08-24 18:12] VITALS: BMI 32.1
[2024-08-24] MEDS ORDERED: LOPERAMIDE HCL 2 MG CAPSULE PO PRN (18:23)
[2024-08-24] MEDS ORDERED: MAGNESIUM HYDROX 2400MG/30ML ORAL SUSPENSION 30 ML CUP PO PRN (18:23)
[2024-08-24] MEDS ORDERED: IBUPROFEN 600 MG TABLET (FP) PO PRN (18:23)
[2024-08-24] MEDS ORDERED: DICYCLOMINE HCL 10 MG CAPSULE PO PRN (18:23)
[2024-08-24] MEDS ORDERED: IBUPROFEN 400 MG TABLET (FP) PO PRN (18:23)
[2024-08-24] MEDS ORDERED: NALOXONE (NARCAN) HCL 4 MG/0.1 ML SPRAY NS PRN (18:23)
[2024-08-24] MEDS ORDERED: POLYETHYLENE GLYCOL (HEALTHYLAX) 3350 17 GM PACKET PO PRN (18:23)
[2024-08-24] MEDS ORDERED: BISMUTH SUBSALICYLATE 524 MG/30 ML PO PRN (18:23)
[2024-08-24] MEDS ORDERED: MAG HYDROX/AL HYDROX/SIMETH 30 ML UNIT-DOSE CUP PO PRN (18:23)
[2024-08-24] MEDS ORDERED: ONDANSETRON *ODT* 4 MG TABLET SL PRN (18:23)
[2024-08-24] MEDS ORDERED: BENZOCAINE/MENTHOL (CHLORASEPTIC ) LOZENGE MM PRN (18:23)
[2024-08-24] MEDS ORDERED: ACETAMINOPHEN 325 MG TABLET (FP) PO PRN (18:23)
[2024-08-24] MEDS ORDERED: guaiFENesin 600 MG TABLET.ER (FP) PO PRN (18:23)
[2024-08-24] MEDS ORDERED: BENZONATATE 200 MG CAPSULE PO PRN (18:23)
[2024-08-24] MEDS: METHOCARBAMOL 500 MG TABLET PO ONE (21:15)
[2024-08-24] MEDS: MELATONIN 5 MG TABLETS PO SCH (22:48)
[2024-08-24] MEDS: THIAMINE 100 MG TABLET PO SCH (22:48)
[2024-08-25] MEDS: hydrOXYzine PAMOATE 25 MG CAPSULE (FP) PO PRN (10:43)
[2024-08-25] MEDS: methaDONE HCL 40 MG DISPERSABLE TABLET PO ONE (10:43)
[2024-08-25] MEDS: METHOCARBAMOL 500 MG TABLET PO PRN (10:43)
[2024-08-25] MEDS: PRENATAL VITAMINS W/ FOLIC ACID TABLET (FP) PO SCH (10:43)
[2024-08-25] MEDS: cloNIDine HCL 0.1 MG TABLET PO SCH (10:43)
[2024-08-25 11:14] LABS: CHLORIDE 103 mmol/L (98-107); POTASSIUM 3.8 mmol/L (3.5-5.1); SODIUM 141 mmol/L (136-145)
[2024-08-25 11:16] LABS: CALCIUM 9.1 mg/dL (8.5-10.1)
[2024-08-25 11:17] LABS: ALBUMIN 3.5 g/dl (3.4-5.0); ANION GAP 10 mmol/L (4-13); BLOOD UREA NITROGEN 14.1 mg/dL (7-18); CO2 28 mmol/L (21-32); GLUCOSE,RANDOM 117 mg/dL (74-106)
[2024-08-25 11:18] LABS: HEMATOCRIT 38.1 % (35.4-49); HEMOGLOBIN 12.7 GM/dL (11.7-16.9); MCH 30.2 pg (25.7-33.7); MCHC 33.3 g/dl (32.0-35.9); MEAN CELL VOLUME 90.5 fl (80-96); MEAN PLT VOLUME 6.9 fl (7.5-11.1); PLATELET COUNT 388 10^3/uL (134-434); RBC 4.21 M/mm3 (4.00-5.60); RDW 13.9 % (11.9-15.9); WHITE BLOOD COUNT 6.5 K/mm3 (4.0-10.0)
[2024-08-25 11:20] LABS: CREATININE 0.8 mg/dL (0.55-1.3); SGOT/AST 32 U/L (15-37); SGPT/ALT 55 U/L (13-61)
[2024-08-25 11:22] LABS: BILIRUBIN,TOTAL 0.4 mg/dL (0.2-1)
[2024-08-25 11:23] LABS: ALK PHOS 98 U/L (45-117)
[2024-08-25] MEDS: OLANZapine 10 MG TABLET PO SCH (22:25)
[2024-08-26] MEDS ORDERED: methaDONE HCL 40 MG DISPERSABLE TABLET PO ONE (10:00)
[2024-08-27] MEDS ORDERED: cloNIDine HCL 0.1 MG TABLET PO PRN
[2024-08-27] MEDS: methaDONE 40 MG, methaDONE 10 MG PO ONE (09:13)
[2024-08-27] MEDS ORDERED: methaDONE HCL 40 MG DISPERSABLE TABLET PO ONE (10:00)
[2024-08-28] MEDS ORDERED: methaDONE HCL 40 MG DISPERSABLE TABLET PO ONE (10:00)
[2024-08-29] MEDS: methaDONE 40 MG, methaDONE 20 MG PO ONE (09:18)
[2024-08-29] MEDS ORDERED: methaDONE HCL 40 MG DISPERSABLE TABLET PO ONE (10:00)
[2024-08-29] MEDS: NALOXONE (NYS OPIOID OVERDOSE PROGRAM) 4 MG/0.1 ML SPRAY NS SCH (12:59)
[2024-08-30 08:58] VITALS: BP 127/77; PULSE 76; RESP 18; TEMP 97.7
[2024-08-30] MEDS ORDERED: methaDONE HCL 40 MG DISPERSABLE TABLET PO ONE (10:00)
== END 2024-08-30 09:50 | disposition home or self-care (01) | DRG 773 ==
LOC: YASAS 15:34 → Y6N 20:12
PROVIDERS: ADMIT Allergy & Immunology; ATTEND Surgery
PROC: HZ2ZZZZ Detoxification Services for Substance Abuse Treatment (ICD-10-PCS; principal; 2024-08-24)
DX: F11.23 Opioid dependence with withdrawal (principal); F10.20 Alcohol dependence, uncomplicated; F17.210 Nicotine dependence, cigarettes, uncomplicated; F19.280 Other psychoactive substance dependence with psychoactive substance-induced anxiety disorder; F19.282 Other psychoactive substance dependence with psychoactive substance-induced sleep disorder; F25.9 Schizoaffective disorder, unspecified; F90.9 Attention-deficit hyperactivity disorder, unspecified type; R56.1 Post traumatic seizures; Z86.11 Personal history of tuberculosis
CPT/HCPCS: 36415; 71046-TC-FY; 80053; 80305; 80307; 85027; 86780; 93005; 93010